=== PATIENT | female | born 1935 | race Caucasian/White ===

== ENCOUNTER 2017-06-02 15:00 | Emergency (ER) | payer MEDICARE, MEDICAID ==
[2017-06-02] MEDS ORDERED: Sodium Chloride 0.9% 10 ML Syringe FLUSH PRN (15:31)
--- NOTE | 2017-06-02 17:18 | EDM.PDOC ---
ED HPI GENERAL MEDICAL PROBLEM - General Chief Complaint: Cardiovascular Problem Stated Complaint: [facility] Time Seen by Provider: 06/02/17 15:10 Source of Information: Reports: Patient, Family, [facility] Records History Limitations: Reports: Other (Confused) - History of Present Illness INITIAL COMMENTS - FREE TEXT/NARRATIVE: [facility] and they checked her blood pressure and it was high and also her heart was racing at 133. EMS was called and when they got there her blood pressure and heart rate were coming down. She is on oxygen at the [facility] and it was not on for awhile. She denies any pain such as a headache, chest pain, abdominal pain or dysuria. She is not more short of breath then normal. She has no cough, fever or chills. There has been no recent changes to her medications. Onset: Sudden Duration: Minutes: Severity: Mild Improves with: Reports: None Worsens with: Reports: None Associated Symptoms: Reports: Shortness of Breath. Denies: Chest Pain, Fever/ Chills, Nausea/Vomiting - Related Data Allergies Allergy/AdvReac Type Severity Reaction Status Date / Time No Known Allergies Allergy Verified 06/02/17 15:12 Past Medical History HEENT History: Reports: Impaired Vision Cardiovascular History: Reports: Heart Failure, High Cholesterol, Hypertension Respiratory History: Reports: Other (See Below) Other Respiratory History: Hypoxemia- wears 2L chronic Gastrointestinal History: Reports: GERD Genitourinary History: Reports: Urinary Incontinence Musculoskeletal History: Reports: Osteoarthritis Neurological History: Reports: Alzheimers Disease Psychiatric History: Reports: Anxiety, Depression, Psychosis, Schizophrenia - Past Surgical History Musculoskeletal Surgical History: Reports: Hip Replacement Social & Family History - Family History Family Medical History: Noncontributory - Tobacco Use Smoking Status *Q: Former Smoker Used Tobacco, but Quit: Yes Month Tobacco Last Used: 06/02/2007 Second Hand Smoke Exposure: No - Recreational Drug Use Recreational Drug Use: No ED ROS GENERAL - Review of Systems Review Of Systems: See Below Constitutional: Reports: No Symptoms HEENT: Reports: No Symptoms Respiratory: Reports: Shortness of Breath Cardiovascular: Reports: Other (Tachycardia). Denies: Chest Pain Endocrine: Reports: No Symptoms GI/Abdominal: Reports: No Symptoms : Reports: No Symptoms ED EXAM, GENERAL - Physical Exam Exam: See Below Exam Limited By: No Limitations General Appearance: Alert, No Apparent Distress Ears: Normal External Exam Nose: Normal Inspection Head: Atraumatic, Normocephalic Neck: Normal Inspection Respiratory/Chest: No Respiratory Distress, Lungs Clear, Normal Breath Sounds Cardiovascular: Regular Rate, Rhythm, No Edema, No Murmur GI/Abdominal: Soft, Non-Tender, No Organomegaly, No Mass Back Exam: Normal Inspection Extremities: Normal Inspection Neurological: Alert, Oriented, No Motor/Sensory Deficits EKG INTERPRETATION EKG Date: 06/02/17 Time: 15:53 Rhythm: NSR Rate (Beats/Min): 83 Mathews: LAD-Left Mathews Deviation P-Wave: Present QRS: Normal ST-T: Normal QT: Normal EKG Interpretation Comments: PAC Course - Vital Signs Last Recorded V/S: Last Vital Signs Temp 98.1 F 06/02/17 15:08 Pulse 100 06/02/17 15:08 Resp 15 06/02/17 15:08 BP 136/95 H 06/02/17 15:08 Pulse Ox 96 06/02/17 15:08 - Orders/Labs/Meds Orders: Active Orders 24 hr Category Date Time Status Cardiac Monitoring [RC] . DIRECTED Care 06/02/17 15:31 Active EKG Documentation Completion [RC] STAT Care 06/02/17 15:32 Active Holter Monitor 48 Hours [RC] .PRN Care 06/02/17 17:12 Ordered Oxygen Therapy [RC] PRN Care 06/02/17 15:31 Active Peripheral IV Care [RC] . DIRECTED Care 06/02/17 15:32 Active Chest 1V Frontal [CR] Stat Exams 06/02/17 15:47 Taken Sodium Chloride 0.9% [Saline Flush] Med 06/02/17 15:31 Active 10 ml FLUSH ASDIRECTED PRN Peripheral IV Insertion Adult [OM.PC] Stat Oth 06/02/17 15:31 Ordered Medication Orders Sodium Chloride (Saline Flush) 10 ml FLUSH ASDIRECTED PRN PRN Reason: Keep Vein Open Last Admin: 06/02/17 15:50 Dose: 10 ml Labs: Laboratory Tests 06/02/17 06/02/17 Range/Units 15:50 15:50 WBC 10.61 H (3.98-10.04) K/mm3 RBC 4.33 (3.98-5.22) M/mm3 Hgb 13.4 (11.2-15.7) gm/L Hct 40.4 (34.1-44.9) % MCV 93.3 (79.4-94.8) fl MCH 30.9 (25.6-32.2) pg MCHC 33.2 (32.2-35.5) g/dl RDW Std Deviation 43.6 (36.4-46.3) fL Plt Count 194 (182-369) K/mm3 MPV 9.9 (9.4-12.3) fl Neut % (Auto) 73.5 H (34.0-71.1) % Lymph % (Auto) 16.1 L (19.3-51.7) % Gilliam % (Auto) 8.3 (4.7-12.5) % Eos % (Auto) 1.4 (0.7-5.8) Baso % (Auto) 0.3 (0.1-1.2) % Neut # (Auto) 7.80 H (1.56-6.13) K/mm3 Lymph # (Auto) 1.71 (1.18-3.74) K/mm3 Gilliam # (Auto) 0.88 H (0.24-0.36) K/mm3 Eos # (Auto) 0.15 (0.04-0.36) K/mm3 Baso # (Auto) 0.03 (0.01-0.08) K/mm3 Sodium 138 (136-145) mEq/L Potassium 3.7 (3.5-5.1) mEq/L Chloride 101 (98-107) mEq/L Carbon Dioxide 26 (21-32) mEq/L Anion Gap 14.7 (5-15) BUN 15 (7-18) mg/dL Creatinine 0.9 (0.55-1.02) mg/dL Est Cr Clr Drug Dosing 34.02 mL/min Estimated GFR (MDRD) 60 (>60) mL/min BUN/Creatinine Ratio 16.7 (14-18) Glucose 157 H (83-115) mg/dL Calcium 10.2 H (8.5-10.1) mg/dL Total Bilirubin 0.2 (0.2-1.0) mg/dL AST 22 (15-37) U/L ALT 25 (14-59) U/L Alkaline Phosphatase 86 (46-116) U/L Troponin I < 0.017 (0.00-0.056) ng/mL Total Protein 8.1 (6.4-8.2) g/dl Albumin 4.1 (3.4-5.0) g/dl Globulin 4.0 gm/dL Albumin/Globulin Ratio 1.0 (1-2) Meds: Medications Generic Name Dose Route Start Last Admin Trade Name Freq PRN Reason Stop Dose Admin Sodium Chloride 10 ml 06/02/17 15:31 06/02/17 15:50 Saline Flush FLUSH 10 ml ASDIRECTED PRN Administration Keep Vein Open - Re-Assessments/Exams Free Text/Narrative Re-Assessment/Exam: 06/02/17 17:19 I ordered oxygen, IV saline lock, EKG, CXR and labs. Her EKG shows a NSR with no acute changes and a PAC. Her CXR shows nothing acute. Her WBC was slightly elevated at 10.61. Her glucose was a little elevated at 157. Her troponin I was negative. We did not see any tachycardia while she is here. I will put a holter monitor on her for 48 hours and have he follow up with Dr Foster. Departure - Departure Time of Disposition: 17:25 Disposition: Home, Self-Care 01 Condition: Good Clinical Impression: HTN (hypertension) Qualifiers: Hypertension type: essential hypertension Qualified Code(s): I10 - Essential ( primary) hypertension Referrals: Burke Foster MD [Primary Care Provider] - Forms: ED Department Discharge Additional Instructions: Wear the holter monitor for 48 hours and have it returned so it can be read. Continue with your medications as prescribed. Follow up with Dr Foster in 1 week. - My Orders Last 24 Hours: My Active Orders 06/02/17 15:31 Cardiac Monitoring [RC] . DIRECTED Oxygen Therapy [RC] PRN Sodium Chloride 0.9% [Saline Flush] 10 ml FLUSH ASDIRECTED PRN Peripheral IV Insertion Adult [OM.PC] Stat 06/02/17 15:32 EKG Documentation Completion [RC] STAT Peripheral IV Care [RC] . DIRECTED 06/02/17 15:47 Chest 1V Frontal [CR] Stat 06/02/17 17:12 Holter Monitor 48 Hours [RC] .PRN - Assessment/Plan Last 24 Hours: My Active Orders 06/02/17 15:31 Cardiac Monitoring [RC] . DIRECTED Oxygen Therapy [RC] PRN Sodium Chloride 0.9% [Saline Flush] 10 ml FLUSH ASDIRECTED PRN Peripheral IV Insertion Adult [OM.PC] Stat 06/02/17 15:32 EKG Documentation Completion [RC] STAT Peripheral IV Care [RC] . DIRECTED 06/02/17 15:47 Chest 1V Frontal [CR] Stat 06/02/17 17:12 Holter Monitor 48 Hours [RC] .PRN
[2017-06-02 18:51] VITALS: BP 163/88
--- NOTE | 2017-06-04 07:24 | CR ---
Chest: Frontal view of the chest was obtained. Comparison: No prior chest x-ray. Heart size at the upper limits of normal. Tortuous thoracic aorta is seen. Lungs are clear with no acute infiltrates. Scoliosis is present within the spine. Bony structures are osteoporotic. Impression: 1. Incidental findings. Nothing acute is appreciated on frontal chest x-ray. Diagnostic code #2
== END 2017-06-02 17:42 | disposition home or self-care (01) ==
LOC: JD.ED 15:00
DX: I11.0 Hypertensive heart disease with heart failure (principal); I50.9 Heart failure, unspecified; E78.00 Pure hypercholesterolemia, unspecified; G30.9 Alzheimer's disease, unspecified; F02.80 Dementia in other diseases classified elsewhere, unspecified severity, without behavioral disturbance, psychotic disturbance, mood disturbance, and anxiety; M19.90 Unspecified osteoarthritis, unspecified site; K21.9 Gastro-esophageal reflux disease without esophagitis; Z96.649 Presence of unspecified artificial hip joint; Z87.891 Personal history of nicotine dependence
CPT/HCPCS: 36415; 71010; 80053; 84484; 85025; 93005; 93225; 93226; 99285; J7050; 99284

== ENCOUNTER 2017-11-15 04:50 | Emergency (ER) | payer MEDICARE, MEDICAID ==
--- NOTE | 2017-11-15 05:10 | EDM.PDOC ---
ED HPI GENERAL MEDICAL PROBLEM - General Chief Complaint: Head Injury Stated Complaint: [facility] Time Seen by Provider: 11/15/17 04:56 Source of Information: Reports: Patient, RN Notes Reviewed - History of Present Illness INITIAL COMMENTS - FREE TEXT/NARRATIVE: 82-year-old female fell injuring right forehead and eyebrow. She is a long term resident. Staff found her lying on the floor with active bleeding from right eyebrow laceration. It is not known if there was LOC but she was awake, in her normal state of confusion when found by staff. Ambulance was called and she was transported here without further incident. She does have history of dementia so any history from her may or may not be accurate. However she does deny headache on arrival to ED. She denies feeling nauseated. There's been no vomiting. She denies chest pain or difficulty breathing. She has not complained of hip or any other upper or lower extremity discomfort. She has not been complaining of neck or back discomfort. Right Head Pain Score (Numeric/FACES): 8 - Related Data Allergies Allergy/AdvReac Type Severity Reaction Status Date / Time No Known Allergies Allergy Verified 11/15/17 05:01 Home Meds: Home Meds Acetaminophen 650 mg PO TID 11/15/17 [History] Aspirin [Halfprin] 81 mg PO DAILY 11/15/17 [History] Cranberry 400 mg PO BID 11/15/17 [History] Donepezil HCl [Aricept] 10 mg PO BID 11/15/17 [History] Donepezil HCl [Aricept] 10 mg PO DAILY 11/15/17 [History] Donepezil [Aricept] 5 mg PO DAILY 11/15/17 [History] Furosemide [Lasix] 40 mg PO DAILY 11/15/17 [History] Latanoprost [Xalatan] 1 drop OP DAILY 11/15/17 [History] Lutein/Minerals/Vit A,C & E [Ocuvite] 1 tab PO BID 11/15/17 [History] Niacin [Niacin ER] 500 mg PO DAILY 11/15/17 [History] Potassium Chloride [Klor-Con M20] 20 meq PO DAILY 11/15/17 [History] Sennosides/Docusate Sodium [Senna Plus Tablet] 1 tab PO DAILY 11/15/17 [History] Sertraline [Zoloft] 200 mg PO DAILY 11/15/17 [History] Valsartan [Diovan] 80 mg PO DAILY 11/15/17 [History] busPIRone [Buspar] 10 mg PO TID 11/15/17 [History] glipiZIDE [Glucotrol] 5 mg PO BID 11/15/17 [History] metFORMIN [Glucophage] 125 mg PO BID 11/15/17 [History] risperiDONE [Risperdal] 2 mg PO DAILY 11/15/17 [History] risperiDONE [Risperdal] 3 mg PO BEDTIME 11/15/17 [History] Past Medical History HEENT History: Reports: Impaired Vision Cardiovascular History: Reports: Heart Failure, High Cholesterol, Hypertension Respiratory History: Reports: Other (See Below) Other Respiratory History: Hypoxemia- wears 2L chronic Gastrointestinal History: Reports: GERD Genitourinary History: Reports: Urinary Incontinence Musculoskeletal History: Reports: Osteoarthritis Neurological History: Reports: Alzheimers Disease Psychiatric History: Reports: Anxiety, Depression, Psychosis, Schizophrenia - Past Surgical History Musculoskeletal Surgical History: Reports: Hip Replacement Social & Family History - Family History Family Medical History: Noncontributory - Tobacco Use Smoking Status *Q: Former Smoker Used Tobacco, but Quit: Yes Month Tobacco Last Used: 06/02/2007 Second Hand Smoke Exposure: No - Recreational Drug Use Recreational Drug Use: No ED ROS GENERAL - Review of Systems Review Of Systems: See Below Constitutional: Reports: No Symptoms HEENT: Reports: Other (Laceration injury to right eyebrow) Respiratory: Denies: Shortness of Breath Cardiovascular: Denies: Chest Pain GI/Abdominal: Denies: Abdominal Pain, Nausea, Vomiting Musculoskeletal: Denies: Neck Pain, Leg Pain, Joint Pain Skin: Reports: Bruising (Around right eyebrow) Neurological: Denies: Headache ED EXAM, HEAD INJURY - Physical Exam Exam: See Below General Appearance: Alert (Patient is awake, cooperative with exam, does answer questions and does respond to simple commands) Head: Facial Ecchymosis (Large hematoma developing area of right eyebrow and surrounding forehead), Facial Swelling (Moderate swelling in the area of the right eyebrow and surrounding for head), Other (2.5 synovator laceration right eyebrow) Eyes: Bilateral Eye: Other (Pupils are equal bilateral) Ears: Normal External Exam. No: Canal Discharge Nose: Normal Inspection. No: Nasal Swelling, Active Bleeding Throat/Mouth: Normal Inspection, Other (No visible intraoral injury) Neck: Non-Tender Respiratory: No Respiratory Distress, Lungs Clear, Normal Breath Sounds, Chest Non-Tender Cardiovascular: Regular Rate, Rhythm GI/Abdominal Exam: Soft, Non-Tender Extremities: Leg Pain (Mild tenderness left hip, mild pain with motion left hip) Neurologic: No Motor/Sensory Deficits, Other (Moderate confusion, apparently chronic) Skin: Warm/Dry ED LACERATION/WOUND & KIRSTIN PROC - Laceration/Wound Repair Right Forehead Lac/wound length in cm: 2.5 Appearance: Linear Distal NVT: Neuro & Vascular Intact Anesthetic Type: Local Local Anesthesia - Lidocaine (Xylocaine): 1% Plain Skin Prep: Saline Suture Size: 4-0 # of Sutures: 4 Course - Vital Signs Last Recorded V/S: Last Vital Signs Temp 97.0 F 11/15/17 04:55 Pulse 80 11/15/17 04:55 Resp 14 11/15/17 04:55 BP 168/96 H 11/15/17 04:55 Pulse Ox 92 L 11/15/17 04:55 - Orders/Labs/Meds Orders: Active Orders 24 hr Category Date Time Status CBC WITH AUTO DIFF [HEME] Stat Lab 11/15/17 06:40 Received Meds: Medications Discontinued Medications Generic Name Dose Route Start Last Admin Trade Name [place] PRN Reason Stop Dose Admin Lidocaine HCl 50 ml 11/15/17 05:15 11/15/17 05:22 Xylocaine 1% INJECT 11/15/17 05:16 50 ml ONETIME ONE Administration - Re-Assessments/Exams Free Text/Narrative Re-Assessment/Exam: 11/15/17 06:05. Was not planning to do a head CT initially but now that I see the dramatic increase in bruising of the right eyebrow and forehead area even since arrival to the ED thinking about her hitting the floor hard with probable unprotected fall I am going to CT her had to rule out possible intracranial hemorrhage. Also did check a pelvis X ray because she did have some discomfort of her hips. There was no bruising, swelling or deformity for either hip. X- rays do not show any evidence for hip fracture. There is offset of the pubic symphysis secondary to old trauma, see Radiology report for details. Departure - Departure Time of Disposition: 06:50 Disposition: Home, Self-Care 01 Condition: Fair Clinical Impression: Fall Qualifiers: Encounter type: initial encounter Qualified Code(s): W19.XXXA - Unspecified fall, initial encounter Forehead laceration Qualifiers: Encounter type: initial encounter Qualified Code(s): S01.81XA - Laceration without foreign body of other part of head, initial encounter Forehead contusion Qualifiers: Encounter type: initial encounter Qualified Code(s): S00.83XA - Contusion of other part of head, initial encounter - Discharge Information Referrals: PCP,Unknown [Primary Care Provider] - Forms: ED Department Discharge Additional Instructions: Pressure dressing right forehead for 1-2 days, intermittent ice packs today if tolerated to right for head to try help reduce swelling and bruising. Head CT has been done, no intracranial hemorrhage, bruising or swelling visible. X- rays of pelvis and hips does not show any sign of acute fracture. Laceration care instructions. Stitches right for head else in about 8 days. - My Orders Last 24 Hours: My Active Orders 11/15/17 06:40 CBC WITH AUTO DIFF [HEME] Stat - Assessment/Plan Last 24 Hours: My Active Orders 11/15/17 06:40 CBC WITH AUTO DIFF [HEME] Stat
[2017-11-15] MEDS ORDERED: Lidocaine 1% 50 ML MDV INJECT ONE (05:15)
--- NOTE | 2017-11-15 06:23 | CR ---
Pelvis: AP view of the pelvis was obtained. Comparison: Prior left hip exam of 08/02/09 is available. Left hip prosthesis is seen. Bony structures are osteoporotic. Degenerative change is noted within the right hip and within both sacroiliac joints. Old pubic rami fractures noted on the right side resulting in slight offset of the pubic symphysis which is stable from prior exam. Lucency is identified around the pubic ramus Nothing acute is definitely appreciated. Impression: 1. Old trauma to the right pubic rami resulting in offset of the pubic symphysis. 2. Osteoporosis, degenerative change and left hip prosthesis. 3. Nothing acute is definitely appreciated. Diagnostic code #2
--- NOTE | 2017-11-15 06:40 | CT ---
Head CT Technique: Multiple axial sections through the brain were obtained. Intravenous contrast was not utilized. Comparison: No prior intracranial imaging. Findings: Ventricles along with basal cisterns and sulci over the convexities are moderately prominent. Mild diminished density is noted within the periventricular and subcortical white matter which is compatible with small vessel ischemic demyelination change. No other abnormal parenchymal densities are seen. Soft tissue swelling noted within the right periorbital region. Visualized sinuses are clear. No acute calvarial abnormality is seen. Impression: 1. Soft tissue swelling within the right periorbital region. 2. Senescent change as described above. 3. No acute intracranial abnormality is seen. No skull fracture is seen. Diagnostic code #2
[2017-11-15 08:20] VITALS: BP 136/64
== END 2017-11-15 09:09 | disposition home or self-care (01) ==
LOC: JD.ED 04:50
DX: S01.81XA Laceration without foreign body of other part of head, initial encounter (principal); S01.111A Laceration without foreign body of right eyelid and periocular area, initial encounter; I11.0 Hypertensive heart disease with heart failure; E78.00 Pure hypercholesterolemia, unspecified; K21.9 Gastro-esophageal reflux disease without esophagitis; G30.9 Alzheimer's disease, unspecified; F02.80 Dementia in other diseases classified elsewhere, unspecified severity, without behavioral disturbance, psychotic disturbance, mood disturbance, and anxiety; F32.9 Major depressive disorder, single episode, unspecified; Z79.899 Other long term (current) drug therapy; Z87.891 Personal history of nicotine dependence; W19.XXXA Unspecified fall, initial encounter; Y92.129 Unspecified place in nursing home as the place of occurrence of the external cause
CPT/HCPCS: 12011; 36415; 70450; 70450-26; 72170; 72170-26; 85025; 99285-25

== ENCOUNTER 2017-12-04 14:26 | Inpatient (IN) | payer MEDICARE, MEDICAID ==
[2017-12-04] MEDS ORDERED: Sodium Chloride 0.9% 10 ML Syringe FLUSH PRN (14:47)
[2017-12-04] MEDS ORDERED: Sodium Chloride 0.9% 500 ML IV ONE (14:48)
--- NOTE | 2017-12-04 14:50 | EDM.PDOC ---
ED HPI GENERAL MEDICAL PROBLEM - General Chief Complaint: Respiratory Problem Stated Complaint: [facility] Time Seen by Provider: 12/04/17 14:40 Source of Information: Reports: Patient History Limitations: Reports: No Limitations - History of Present Illness INITIAL COMMENTS - FREE TEXT/NARRATIVE: 82-year-old female is sent over from the [facility] the ambulance for evaluation and treatment of dehydration. Per the senior care she seems more confused than normal. They reports that she had a temperature of 100.4 at the senior care. They did give some Tylenol earlier this morning. She is unable to provide any history. Per the senior care no reports of vomiting or diarrhea. Patient is a DNR, DNI. - Related Data Allergies Allergy/AdvReac Type Severity Reaction Status Date / Time No Known Allergies Allergy Verified 12/04/17 18:00 Home Meds: Home Meds Acetaminophen 650 mg PO TID 11/15/17 [History] Aspirin [Halfprin] 81 mg PO DAILY 11/15/17 [History] Cranberry 400 mg PO BID 11/15/17 [History] Donepezil [Aricept] 10 mg PO BID 11/15/17 [History] Furosemide [Lasix] 40 mg PO DAILY 11/15/17 [History] Latanoprost [Xalatan] 1 drop OP DAILY 11/15/17 [History] Lutein/Minerals/Vit A,C & E [Ocuvite] 1 tab PO BID 11/15/17 [History] Niacin [Niacin ER] 500 mg PO DAILY 11/15/17 [History] Potassium Chloride [Klor-Con M20] 20 meq PO DAILY 11/15/17 [History] Sennosides/Docusate Sodium [Senna Plus Tablet] 1 tab PO DAILY 11/15/17 [History] Sertraline [Zoloft] 200 mg PO DAILY 11/15/17 [History] Valsartan [Diovan] 80 mg PO DAILY 11/15/17 [History] busPIRone [Buspar] 10 mg PO TID 11/15/17 [History] glipiZIDE [Glucotrol] 5 mg PO BID 11/15/17 [History] metFORMIN [Glucophage] 125 mg PO BID 11/15/17 [History] risperiDONE [Risperdal] 3 mg PO BEDTIME 11/15/17 [History] risperiDONE 2 mg PO DAILY 12/04/17 [History] Past Medical History HEENT History: Reports: Impaired Vision Cardiovascular History: Reports: Heart Failure, High Cholesterol, Hypertension Respiratory History: Reports: Other (See Below) Other Respiratory History: Hypoxemia- wears 2L chronic Gastrointestinal History: Reports: GERD Genitourinary History: Reports: Urinary Incontinence Musculoskeletal History: Reports: Osteoarthritis Neurological History: Reports: Alzheimers Disease Psychiatric History: Reports: Anxiety, Depression, Psychosis, Schizophrenia - Past Surgical History Musculoskeletal Surgical History: Reports: Hip Replacement Social & Family History - Family History Family Medical History: Noncontributory - Tobacco Use Smoking Status *Q: Former Smoker Used Tobacco, but Quit: Yes Month Tobacco Last Used: 06/02/2007 Second Hand Smoke Exposure: No - Caffeine Use Caffeine Use: Reports: None - Recreational Drug Use Recreational Drug Use: No ED ROS GENERAL - Review of Systems Review Of Systems: Unable To Obtain ED EXAM, GENERAL - Physical Exam Exam: See Below Exam Limited By: No Limitations General Appearance: Obtunded, Moderate Distress, Thin Ears: Normal External Exam Nose: Normal Inspection Throat/Mouth: Normal Inspection, Normal Voice, No Airway Compromise, Other (dry mucus membranes) Respiratory/Chest: Rhonchi, Wheezing, Other (tachypnic ) Cardiovascular: Normal Peripheral Pulses, Regular Rate, Rhythm, No Murmur Peripheral Pulses: 3+: Radial (L), Radial (R), Posterior Tibial (L), Posterior Tibial (R), Dorsalis Pedis (L), Dorsalis Pedis (R) GI/Abdominal: Soft, Non-Tender Neurological: Unresponsive Psychiatric: Normal Affect, Normal Mood Skin Exam: Warm, Dry, Normal Color Course - Vital Signs Last Recorded V/S: Last Vital Signs Temp 37.3 C 12/04/17 21:11 Pulse 85 12/04/17 21:10 Resp 21 H 12/04/17 21:10 BP 110/50 L 12/04/17 21:10 Pulse Ox 90 L 12/04/17 22:00 - Orders/Labs/Meds Orders: Active Orders 24 hr Category Date Time Status Antiembolic Devices [RC] 09,21 Care 12/04/17 16:54 Active Bedrest Bathroom Privileges [RC] BID Care 12/04/17 16:49 Active Blood Glucose Check, Bedside [RC] QIDACANDBED Care 12/04/17 17:05 Active Head of Bed Elevation [RC] QSHIFT Care 12/04/17 17:02 Active Height and Weight [RC] 04 Care 12/04/17 16:49 Active Insert Lopez Catheter [Insert Urinary Catheter] [OM.PC] Care 12/04/17 14:54 Ordered Stat Intake and Output [RC] 04,16 Care 12/04/17 16:50 Active Oxygen Therapy [RC] ASDIRECTED Care 12/04/17 16:05 Active Pulse Oximetry [RC] QSHIFT Care 12/04/17 16:50 Active RT Aerosol Therapy [RC] ASDIRECTED Care 12/04/17 16:54 Active VTE/DVT Education [RC] DAILY Care 12/04/17 16:49 Active Vital Signs [RC] Q4HR Care 12/04/17 16:49 Active Consult to Case Management [CONS] Routine Cons 12/04/17 16:49 Active Consult to Plug Sorter [CONS] Routine Cons 12/04/17 16:49 Active Consult to Spiritual Care [CONS] Routine Cons 12/04/17 16:49 Active Respiratory Care Assess and Treatment [CONS] Routine Cons 12/04/17 16:49 Active Nothing per Oral Now Diet [DIET] Diet 12/04/17 Dinner Active Chest 2V [CR] Routine Exams 12/06/17 08:00 Ordered BASIC METABOLIC PANEL,BMP [CHEM] AM Lab 12/05/17 05:11 Ordered BASIC METABOLIC PANEL,BMP [CHEM] AM Lab 12/06/17 05:11 Ordered BASIC METABOLIC PANEL,BMP [CHEM] AM Lab 12/07/17 05:11 Ordered BASIC METABOLIC PANEL,BMP [CHEM] AM Lab 12/08/17 05:11 Ordered CBC WITH AUTO DIFF [HEME] AM Lab 12/05/17 05:11 Ordered CBC WITH AUTO DIFF [HEME] AM Lab 12/06/17 05:11 Ordered CBC WITH AUTO DIFF [HEME] AM Lab 12/07/17 05:11 Ordered CBC WITH AUTO DIFF [HEME] AM Lab 12/08/17 05:11 Ordered CRP [C-REACTIVE PROTEIN] [CHEM] AM Lab 12/05/17 05:11 Ordered CRP [C-REACTIVE PROTEIN] [CHEM] AM Lab 12/06/17 05:11 Ordered CRP [C-REACTIVE PROTEIN] [CHEM] AM Lab 12/07/17 05:11 Ordered CRP [C-REACTIVE PROTEIN] [CHEM] AM Lab 12/08/17 05:11 Ordered CULTURE BLOOD [BC] Stat Lab 12/04/17 15:05 Received CULTURE BLOOD [BC] Stat Lab 12/04/17 15:15 Received CULTURE URINE [RM] Stat Lab 12/04/17 14:54 Received MAGNESIUM [CHEM] AM Lab 12/05/17 05:11 Ordered MAGNESIUM [CHEM] AM Lab 12/06/17 05:11 Ordered MAGNESIUM [CHEM] AM Lab 12/07/17 05:11 Ordered MAGNESIUM [CHEM] AM Lab 12/08/17 05:11 Ordered PRO B-TYPE NATRIUR PEPT,BNPPRO [CHEM] Routine Lab 12/05/17 05:11 Ordered STREP PNEUMONIAE ANTIGEN [MREF] Routine Lab 12/04/17 14:54 Received Acetaminophen [Tylenol] Med 12/04/17 16:49 Active 650 mg RECTAL Q4H PRN Albuterol/Ipratropium [DuoNeb 3.0-0.5 MG/3 ML] Med 12/04/17 21:00 Active 3 ml NEB Q6HRRT Dextrose 50% in Water Med 12/04/17 17:05 Active 50 ml IVPUSH ASDIRECTED PRN Insulin Aspart [NovoLOG] Med 12/04/17 22:00 Active See Protocol SUBCUT QIDACANDBED Levofloxacin/Dextrose 5%-Water [Levaquin in D5W 750 MG/ Med 12/04/17 17:00 Active 150 ML] 750 mg Premix Bag 1 bag IV Q24H Magnesium Rep Pharmacy to Dose [Pharmacy to Dose - Med 12/04/17 17:00 Active Magnesium Replacement] 1 dose .XX ASDIRECTED Metoprolol Tartrate [Lopressor] Med 12/04/17 17:07 Active 5 mg IVPUSH Q4H PRN Morphine Med 12/04/17 16:49 Active 0.5 mg IVPUSH Q2H PRN Ondansetron [Zofran] Med 12/04/17 16:49 Active 4 mg IV Q6H PRN Pantoprazole [ProTONIX IV] Med 12/04/17 17:15 Active 40 mg IVPUSH DAILY Potassium Rep Pharmacy to Dose [Pharmacy to Dose - Med 12/04/17 17:00 Active Potassium Replacement] 1 dose .XX ASDIRECTED Sodium Chloride 0.9% [Saline Flush] Med 12/04/17 14:47 Active 10 ml FLUSH ASDIRECTED PRN hydrALAZINE [Apresoline] Med 12/04/17 17:07 Active 10 mg IVPUSH Q6H PRN Blood Culture x2 Reflex Set [OM.PC] Stat Ot 12/04/17 14:47 Ordered Peripheral IV Insertion Adult [OM.PC] Routine Oth 12/04/17 14:46 Ordered Precautions [COMM] Routine Oth 12/04/17 17:02 Ordered Sequential Compression Device [OM.PC] Per Unit Routine Oth 12/04/17 16:51 Ordered Resuscitation Status Routine Resus Stat 12/04/17 16:49 Ordered Medication Orders Acetaminophen (Tylenol) 650 mg RECTAL Q4H PRN PRN Reason: Pain (mild 1-3) Albuterol/Ipratropium (Duoneb 3.0-0.5 Mg/3 Ml) 3 ml NEB Q6HRRT [facility] Last Admin: 12/04/17 20:41 Dose: 3 ml Dextrose/Water (Dextrose 50% In Water) 50 ml IVPUSH ASDIRECTED PRN PRN Reason: Hypoglycemia Furosemide (Lasix) 20 mg IVPUSH DAILY [facility] Hydralazine HCl (Apresoline) 10 mg IVPUSH Q6H PRN PRN Reason: Hypertension Levofloxacin/Dextrose 750 mg/ (Premix) 150 mls @ 100 mls/hr IV Q24H [facility] Last Admin: 12/04/17 17:15 Dose: 100 mls/hr Sodium Chloride (Normal Saline) 1,000 mls @ 75 mls/hr IV ASDIRECTED [facility] Stop: 12/05/17 11:04 Last Admin: 12/04/17 21:44 Dose: 75 mls/hr Insulin Aspart (Novolog) 0 unit SUBCUT QIDACANDBED [facility] PRN Reason: Protocol Last Admin: 12/04/17 21:59 Dose: Latanoprost (Xalatan 0.005% Ophth Soln) 0 ml EYERT DAILY [facility] Magnesium Sulfate (Pharmacy To Dose - Magnesium Replacement) 1 dose .XX ASDIRECTED [facility] Metoprolol Tartrate (Lopressor) 5 mg IVPUSH Q4H PRN PRN Reason: Tachycardia Morphine Sulfate (Morphine) 0.5 mg IVPUSH Q2H PRN PRN Reason: Pain (severe 7-10) Stop: 12/05/17 16:54 Ondansetron HCl (Zofran) 4 mg IV Q6H PRN PRN Reason: Nausea/Vomiting Pantoprazole Sodium (Protonix Iv) 40 mg IVPUSH DAILY [facility] Last Admin: 12/04/17 18:47 Dose: 40 mg Potassium Chloride (Pharmacy To Dose - Potassium Replacement) 1 dose .XX ASDIRECTED [facility] Sodium Chloride (Saline Flush) 10 ml FLUSH ASDIRECTED PRN PRN Reason: Keep Vein Open Last Admin: 12/04/17 15:00 Dose: 10 ml Labs: Laboratory Tests 12/04/17 12/04/17 12/04/17 Range/Units 14:54 15:05 15:05 WBC 10.54 H (3.98-10.04) K/mm3 RBC 4.30 (3.98-5.22) M/mm3 Hgb 13.6 (11.2-15.7) gm/L Hct 41.5 (34.1-44.9) % MCV 96.5 H (79.4-94.8) fl MCH 31.6 (25.6-32.2) pg MCHC 32.8 (32.2-35.5) g/dl RDW Std Deviation 48.6 H (36.4-46.3) fL Plt Count 177 L (182-369) K/mm3 MPV 9.7 (9.4-12.3) fl Neutrophils % (Manual) 81 H (40-60) % Band Neutrophils % 3 (0-10) % Lymphocytes % (Manual) 11 L (20-40) % Atypical Lymphs % 0 % Monocytes % (Manual) 4 (2-10) % Eosinophils % (Manual) 0 L (0.7-5.8) % Basophils % (Manual) 1 (0.1-1.2) Toxic Granulation Few Platelet Estimate Adequate Plt Morphology Comment Normal Anisocytosis 1+ slight RBC Morph Comment Not Reportable Sodium 141 (136-145) mEq/L Potassium 3.7 (3.5-5.1) mEq/L Chloride 103 (98-107) mEq/L Carbon Dioxide 24 (21-32) mEq/L Anion Gap 17.7 H (5-15) BUN 26 H (7-18) mg/dL Creatinine 1.2 H (0.55-1.02) mg/dL Est Cr Clr Drug Dosing TNP Estimated GFR (MDRD) 43 (>60) mL/min BUN/Creatinine Ratio 21.7 H (14-18) Glucose 121 H (83-115) mg/dL Lactic Acid (0.4-2.0) mmol/L Calcium 10.0 (8.5-10.1) mg/dL Total Bilirubin 0.3 (0.2-1.0) mg/dL AST 18 (15-37) U/L ALT 20 (14-59) U/L Alkaline Phosphatase 65 (46-116) U/L C-Reactive Protein 4.6 H* (<1.0) mg/dL Total Protein 7.7 (6.4-8.2) g/dl Albumin 3.6 (3.4-5.0) g/dl Globulin 4.1 gm/dL Albumin/Globulin Ratio 0.9 L (1-2) Urine Color Yellow (Yellow) Urine Appearance Cloudy H (Clear) Urine pH 7.5 (5.0-8.0) Ur Specific [place] 1.020 (1.005-1.030) Urine Protein 2+ H (Negative) Urine Glucose (UA) Negative (Negative) Urine Ketones Negative (Negative) Urine Occult Blood 1+ H (Negative) Urine Nitrite Negative (Negative) Urine Bilirubin Negative (Negative) Urine Urobilinogen 0.2 (0.2-1.0) Ur Leukocyte Esterase 3+ H (Negative) Urine RBC 5-10 H (0-5) /hpf Urine WBC 40-50 H (0-5) /hpf Ur Epithelial Cells 5-10 H (0-5) /hpf Amorphous Sediment Moderate H (NOT SEEN) /hpf Urine Bacteria Many H (FEW) /hpf Urine Mucus Not seen (FEW) /hpf Mycoplasma pneumon IgM (NEGATIVE) 12/04/17 12/04/17 Range/Units 15:05 15:05 WBC (3.98-10.04) K/mm3 RBC (3.98-5.22) M/mm3 Hgb (11.2-15.7) gm/L Hct (34.1-44.9) % MCV (79.4-94.8) fl MCH (25.6-32.2) pg MCHC (32.2-35.5) g/dl RDW Std Deviation (36.4-46.3) fL Plt Count (182-369) K/mm3 MPV (9.4-12.3) fl Neutrophils % (Manual) (40-60) % Band Neutrophils % (0-10) % Lymphocytes % (Manual) (20-40) % Atypical Lymphs % % Monocytes % (Manual) (2-10) % Eosinophils % (Manual) (0.7-5.8) % Basophils % (Manual) (0.1-1.2) Toxic Granulation Platelet Estimate Plt Morphology Comment Anisocytosis RBC Morph Comment Sodium (136-145) mEq/L Potassium (3.5-5.1) mEq/L Chloride (98-107) mEq/L Carbon Dioxide (21-32) mEq/L Anion Gap (5-15) BUN (7-18) mg/dL Creatinine (0.55-1.02) mg/dL Est Cr Clr Drug Dosing Estimated GFR (MDRD) (>60) mL/min BUN/Creatinine Ratio (14-18) Glucose (83-115) mg/dL Lactic Acid 1.0 (0.4-2.0) mmol/L Calcium (8.5-10.1) mg/dL Total Bilirubin (0.2-1.0) mg/dL AST (15-37) U/L ALT (14-59) U/L Alkaline Phosphatase (46-116) U/L C-Reactive Protein (<1.0) mg/dL Total Protein (6.4-8.2) g/dl Albumin (3.4-5.0) g/dl Globulin gm/dL Albumin/Globulin Ratio (1-2) Urine Color (Yellow) Urine Appearance (Clear) Urine pH (5.0-8.0) Ur Specific [place] (1.005-1.030) Urine Protein (Negative) Urine Glucose (UA) (Negative) Urine Ketones (Negative) Urine Occult Blood (Negative) Urine Nitrite (Negative) Urine Bilirubin (Negative) Urine Urobilinogen (0.2-1.0) Ur Leukocyte Esterase (Negative) Urine RBC (0-5) /hpf Urine WBC (0-5) /hpf Ur Epithelial Cells (0-5) /hpf Amorphous Sediment (NOT SEEN) /hpf Urine Bacteria (FEW) /hpf Urine Mucus (FEW) /hpf Mycoplasma pneumon IgM Negative (NEGATIVE) Meds: Medications Generic Name Dose Route Start Last Admin Trade Name Freq PRN Reason Stop Dose Admin Acetaminophen 650 mg 12/04/17 16:49 Tylenol RECTAL Q4H PRN Pain (mild 1-3) Albuterol/Ipratropium 3 ml 12/04/17 21:00 12/04/17 20:41 Duoneb 3.0-0.5 Mg/3 Ml NEB 3 ml Q6HRRT [facility] Administration Dextrose/Water 50 ml 12/04/17 17:05 Dextrose 50% In Water IVPUSH ASDIRECTED PRN Hypoglycemia Furosemide 20 mg 12/05/17 09:00 Lasix IVPUSH DAILY [facility] Hydralazine HCl 10 mg 12/04/17 17:07 Apresoline IVPUSH Q6H PRN Hypertension Levofloxacin/Dextrose 750 mg/ 150 mls @ 100 mls/hr 12/04/17 17:00 12/04/17 17 :15 Premix IV 100 mls/hr Q24H [facility] Administration Sodium Chloride 1,000 mls @ 75 mls/hr 12/04/17 21:45 12/04/17 21:44 Normal Saline IV 12/05/17 11:04 75 mls/hr ASDIRECTED [facility] Administration Insulin Aspart 0 unit 12/04/17 22:00 12/04/17 21:59 Novolog SUBCUT Not Given QIDACANDBED [facility] Protocol Latanoprost 0 ml 12/05/17 09:00 Xalatan 0.005% Ophth Soln EYERT DAILY [facility] Magnesium Sulfate 1 dose 12/04/17 17:00 Pharmacy To Dose - Magnesium Replacement .XX ASDIRECTED [facility] Metoprolol Tartrate 5 mg 12/04/17 17:07 Lopressor IVPUSH Q4H PRN Tachycardia Morphine Sulfate 0.5 mg 12/04/17 16:49 Morphine IVPUSH 12/05/17 16:54 Q2H PRN Pain (severe 7-10) Ondansetron HCl 4 mg 12/04/17 16:49 Zofran IV Q6H PRN Nausea/Vomiting Pantoprazole Sodium 40 mg 12/04/17 17:15 12/04/17 18:47 Protonix Iv IVPUSH 40 mg DAILY [facility] Administration Potassium Chloride 1 dose 12/04/17 17:00 Pharmacy To Dose - Potassium Replacement .XX ASDIRECTED [facility] Sodium Chloride 10 ml 12/04/17 14:47 12/04/17 15:00 Saline Flush FLUSH 10 ml ASDIRECTED PRN Administration Keep Vein Open Discontinued Medications Generic Name Dose Route Start Last Admin Trade Name [place] PRN Reason Stop Dose Admin Acetaminophen 650 mg 12/04/17 16:00 12/04/17 17:01 Tylenol RECTAL 12/04/17 16:01 650 mg NOW ONE Administration Sodium Chloride 500 mls @ 500 mls/hr 12/04/17 14:48 12/04/17 15:22 Normal Saline IV 12/04/17 15:47 500 mls/hr ONETIME ONE Administration Ceftriaxone Sodium 1 gm/ 100 mls @ 200 mls/hr 12/04/17 15:49 12/04/17 16:05 Sodium Chloride IV 12/04/17 16:18 200 mls/hr ONETIME ONE Administration Sodium Chloride 1,000 mls @ 100 mls/hr 12/04/17 15:55 12/04/17 18:34 Normal Saline IV 12/05/17 01:54 100 mls/hr ONETIME ONE Administration - Radiology Interpretation Free Text/Narrative:: Chest: Portable view of the chest was obtained. Comparison: Previous chest x-ray of 06/02/17. Slight parenchymal density is seen behind the left heart. Lungs otherwise are clear. Heart is enlarged. Tortuous thoracic aorta is seen. Several old healed right-sided rib fractures are seen. Bony structures are osteopenic. Impression: 1. Slight parenchymal density behind the left heart suspicious for small area of pneumonia. 2. Mild cardiomegaly and other incidental findings. - Re-Assessments/Exams Free Text/Narrative Re-Assessment/Exam: 12/04/17 16:06 I checked on the patient. She did sit up and and knowledge my presence. She does still seem very confused. Unclear exactly how far this is from her baseline. snf confirmed that they do give the Tylenol around 11 AM. She has been ordered 650 mg rectal Tylenol. I also ordered her a gram of Rocephin. She has pneumonia and urinary tract infection. She is also likely septic. I spoke with Dr. Campoverde regarding this patient. He agrees to accept the patient. Departure - Departure Time of Disposition: 16:10 Disposition: Admitted As Inpatient 65 Condition: Serious Clinical Impression: Pneumonia UTI (urinary tract infection) Qualifiers: Urinary tract infection type: acute cystitis Hematuria presence: with hematuria Qualified Code(s): N30.01 - Acute cystitis with hematuria - Discharge Information - My Orders Last 24 Hours: My Active Orders 12/04/17 14:46 Peripheral IV Insertion Adult [OM.PC] Routine 12/04/17 14:47 Sodium Chloride 0.9% [Saline Flush] 10 ml FLUSH ASDIRECTED PRN Blood Culture x2 Reflex Set [OM.PC] Stat 12/04/17 14:54 Insert Lopez Catheter [Insert Urinary Catheter] [OM.PC] Stat CULTURE URINE [RM] Stat 12/04/17 15:05 CULTURE BLOOD [BC] Stat 12/04/17 15:15 CULTURE BLOOD [BC] Stat 12/04/17 16:05 Oxygen Therapy [RC] ASDIRECTED - Assessment/Plan Last 24 Hours: My Active Orders 12/04/17 14:46 Peripheral IV Insertion Adult [OM.PC] Routine 12/04/17 14:47 Sodium Chloride 0.9% [Saline Flush] 10 ml FLUSH ASDIRECTED PRN Blood Culture x2 Reflex Set [OM.PC] Stat 12/04/17 14:54 Insert Lopez Catheter [Insert Urinary Catheter] [OM.PC] Stat CULTURE URINE [RM] Stat 12/04/17 15:05 CULTURE BLOOD [BC] Stat 12/04/17 15:15 CULTURE BLOOD [BC] Stat 12/04/17 16:05 Oxygen Therapy [RC] ASDIRECTED
--- NOTE | 2017-12-04 15:48 | CR ---
Chest: Portable view of the chest was obtained. Comparison: Previous chest x-ray of 06/02/17. Slight parenchymal density is seen behind the left heart. Lungs otherwise are clear. Heart is enlarged. Tortuous thoracic aorta is seen. Several old healed right-sided rib fractures are seen. Bony structures are osteopenic. Impression: 1. Slight parenchymal density behind the left heart suspicious for small area of pneumonia. 2. Mild cardiomegaly and other incidental findings. Diagnostic code #3
[2017-12-04] MEDS ORDERED: cefTRIAXone 1 GM in Sodium Chloride 0.9% 100 ML IV ONE (15:49)
[2017-12-04] MEDS ORDERED: Sodium Chloride 0.9% 1,000 ML IV ONE (15:55)
[2017-12-04] MEDS ORDERED: Acetaminophen 650 MG Supp RECTAL ONE (16:00)
[2017-12-04] MEDS ORDERED: Ondansetron 4 MG/2 ML SDV IV PRN (16:49)
[2017-12-04] MEDS ORDERED: Morphine 2 MG/ML Syringe IVPUSH PRN (16:49)
[2017-12-04] MEDS ORDERED: Acetaminophen 650 MG Supp RECTAL PRN (16:49)
--- NOTE | 2017-12-04 16:49 | PCM.HP ---
H&P History of Present Illness - General Date of Service: 12/04/17 Admit Problem/Dx: UTI, Pneumonia Source of Information: Family (Daughter in-law in room ), Provider, RN, RN Notes Reviewed History Limitations: Reports: Altered Mental Status - History of Present Illness Initial Comments - Free Text/Narative: India Emerson is a 82 yo female who presented to our ED today from [facility] via ambulance for possible dehydration. penitentiary reports she seemed more confused than normal and had a temperature of 100.4. They gave her Tylenol around 11 AM. She has a history of dementia and is unable to provide any history. penitentiary reports no vomiting or diarrhea. In the ED temp was 38.4 Celsius. Pulse 96. Respirations 18. Blood pressure 120/70. Pulse ox was 80% labs are obtained: She does have mild leukocytosis at 10.54. Hemoglobin is 13.6. Hematocrit 41.5. She is macrocytic. Bullets are low at 177,000. Neutrophils are elevated at 81%. Band neutrophils are at 3%. Sodium was 141. Potassium 3.7. Chloride 103. Carbon dioxide 24. Anion gap is high at 17.7. BUN is high at 26. Creatinine is high at 1.2. EGFR is 43. Glucose is high at 121. Lactic acid is 1.0. Calcium is 10.0. Total bilirubin 0.3. Liver enzymes looked good with AST at 18, ALT at 20, alkaline phosphatase at 65. CRP is slightly elevated at 4.6. Total protein is 7.7. Albumin 3.6. UA is positive with cloudy urine, 2+ protein, 1+ occult blood, 3+ leukocyte esterase, 5-10 urine RBCs, 4050 urine 30 BCs, 5-10 urine epithelial cells, moderate amorphous sediment, and many urine bacteria. Urine cultures are ordered. Blood cultures were ordered. Given 1 g Rocephin in the ED. She is also started on IV fluids. She is given a 500 mL bolus. She is also given 650 mg rectal Tylenol. Chest x-ray is obtained and compared to prior chest x-ray of 06/02/17. This is interpreted by Dr. Olmstead as "1. Slight parenchymal density behind the left heart suspicious for small area pneumonia. 2. Mild cardiomegaly and other incidental findings." She did respond slightly to the ED provider when the provider walked in the room however on my exam she was was unresponsive. She does carry a history of: Alzheimer's disease, dementia with behavioral disturbances, dysthymic disorder, type II DM,. Schizophrenia, anxiety, heart failure, incontinence, osteoporosis, depression, HLD, GERD, glaucoma, constipation. She is a former smoker. She is subsequently admitted to the medical floor. She is a DNR/DNI. Her PCP is Dr. Foster at [facility]. - Related Data Allergies/Adverse Reactions: Allergies Allergy/AdvReac Type Severity Reaction Status Date / Time No Known Allergies Allergy Verified 12/04/17 18:00 Home Medications: Home Meds Acetaminophen 650 mg PO TID 11/15/17 [History] Aspirin [Halfprin] 81 mg PO DAILY 11/15/17 [History] Cranberry 400 mg PO BID 11/15/17 [History] Donepezil [Aricept] 10 mg PO BID 11/15/17 [History] Furosemide [Lasix] 40 mg PO DAILY 11/15/17 [History] Latanoprost [Xalatan] 1 drop OP DAILY 11/15/17 [History] Lutein/Minerals/Vit A,C & E [Ocuvite] 1 tab PO BID 11/15/17 [History] Niacin [Niacin ER] 500 mg PO DAILY 11/15/17 [History] Potassium Chloride [Klor-Con M20] 20 meq PO DAILY 11/15/17 [History] Sennosides/Docusate Sodium [Senna Plus Tablet] 1 tab PO DAILY 11/15/17 [History] Sertraline [Zoloft] 200 mg PO DAILY 11/15/17 [History] Valsartan [Diovan] 80 mg PO DAILY 11/15/17 [History] busPIRone [Buspar] 10 mg PO TID 11/15/17 [History] glipiZIDE [Glucotrol] 5 mg PO BID 11/15/17 [History] metFORMIN [Glucophage] 125 mg PO BID 11/15/17 [History] risperiDONE [Risperdal] 3 mg PO BEDTIME 11/15/17 [History] risperiDONE 2 mg PO DAILY 12/04/17 [History] Past Medical History HEENT History: Reports: Impaired Vision Cardiovascular History: Reports: Heart Failure, High Cholesterol, Hypertension Respiratory History: Reports: Other (See Below) Other Respiratory History: Hypoxemia- wears 2L chronic Gastrointestinal History: Reports: GERD Genitourinary History: Reports: Urinary Incontinence Musculoskeletal History: Reports: Osteoarthritis Neurological History: Reports: Alzheimers Disease Psychiatric History: Reports: Anxiety, Depression, Psychosis, Schizophrenia - Past Surgical History Musculoskeletal Surgical History: Reports: Hip Replacement Social & Family History - Family History Family Medical History: Noncontributory - Tobacco Use Smoking Status *Q: Former Smoker Used Tobacco, but Quit: Yes Month Tobacco Last Used: 06/02/2007 Second Hand Smoke Exposure: No - Caffeine Use Caffeine Use: Reports: None - Recreational Drug Use Recreational Drug Use: No H&P Review of Systems - Review of Systems: Review Of Systems: Unable To Obtain Free Text/Narrative: Unable to obtain a ROS from patient as she is unresponsive to me. ED provider reports [facility] staff noticed patient had a fever and was more confused than normal. She was given tylenol. She does have a significant history of dementia and confusion. She is normally on NDD1 - pureed with thin liquids diet. Her medications are usually crushed and placed in pudding. She does have assistance when feeding. Adriana in- is in room and reports patient is usually alert but quite confused. She reports patient can normally hear well but is essentially blind. This leads to difficulty with eating. Exam - Exam Exam: See Below - Vital Signs Vital Signs: Last Vital Signs Temp 101.1 F H 12/04/17 14:32 Pulse 96 12/04/17 14:32 Resp 18 12/04/17 14:32 BP 128/70 12/04/17 14:32 Pulse Ox 88 L 12/04/17 14:32 Weight: 119 lb 9.6 oz - Exam Quality Assessment: Supplemental Oxygen General: Mild Distress, Lethargic. No: Alert, Cooperative HEENT: Conjunctiva Clear, EACs Clear, Nares Patent, Pupils Equal, Pupils Reactive, Other. No: Mucosa Moist & [place] Neck: Supple, Trachea Midline. No: JVD, Thyromegaly Lungs: Normal Respiratory Effort, Decreased Breath Sounds, Rhonchi, Wheezing Cardiovascular: Regular Rate, Regular Rhythm GI/Abdominal Exam: Normal Bowel Sounds, Soft, Non-Tender, No Organomegaly, No Distention, No Abnormal Bruit, No Mass, Pelvis Stable (Female) Exam: Deferred Rectal (Female) Exam: Deferred Extremities: Normal Inspection, Normal Range of Motion, Non-Tender, Normal Capillary Refill, Pedal Edema (mild) Peripheral Pulses: 1+: Radial (L), Radial (R), Posterior Tibial (L), Posterior Tibial (R), Dorsalis Pedis (L), Dorsalis Pedis (R) Skin: Warm, Dry, Intact Neurological: Other (Unable to examine as patien is unresponsive ) - Patient Data Lab Results Last 24 hrs: Laboratory Results - last 24 hr 12/04/17 12/04/17 12/04/17 Range/Units 14:54 15:05 15:05 WBC 10.54 H (3.98-10.04) K/mm3 RBC 4.30 (3.98-5.22) M/mm3 Hgb 13.6 (11.2-15.7) gm/L Hct 41.5 (34.1-44.9) % MCV 96.5 H (79.4-94.8) fl MCH 31.6 (25.6-32.2) pg MCHC 32.8 (32.2-35.5) g/dl RDW Std Deviation 48.6 H (36.4-46.3) fL Plt Count 177 L (182-369) K/mm3 MPV 9.7 (9.4-12.3) fl Neutrophils % (Manual) 81 H (40-60) % Band Neutrophils % 3 (0-10) % Lymphocytes % (Manual) 11 L (20-40) % Atypical Lymphs % 0 % Monocytes % (Manual) 4 (2-10) % Eosinophils % (Manual) 0 L (0.7-5.8) % Basophils % (Manual) 1 (0.1-1.2) Toxic Granulation Few Platelet Estimate Adequate Plt Morphology Comment Normal Anisocytosis 1+ slight RBC Morph Comment Not Reportable Sodium 141 (136-145) mEq/L Potassium 3.7 (3.5-5.1) mEq/L Chloride 103 (98-107) mEq/L Carbon Dioxide 24 (21-32) mEq/L Anion Gap 17.7 H (5-15) BUN 26 H (7-18) mg/dL Creatinine 1.2 H (0.55-1.02) mg/dL Est Cr Clr Drug Dosing TNP Estimated GFR (MDRD) 43 (>60) mL/min BUN/Creatinine Ratio 21.7 H (14-18) Glucose 121 H (83-115) mg/dL Lactic Acid (0.4-2.0) mmol/L Calcium 10.0 (8.5-10.1) mg/dL Total Bilirubin 0.3 (0.2-1.0) mg/dL AST 18 (15-37) U/L ALT 20 (14-59) U/L Alkaline Phosphatase 65 (46-116) U/L C-Reactive Protein 4.6 H* (<1.0) mg/dL Total Protein 7.7 (6.4-8.2) g/dl Albumin 3.6 (3.4-5.0) g/dl Globulin 4.1 gm/dL Albumin/Globulin Ratio 0.9 L (1-2) Urine Color Yellow (Yellow) Urine Appearance Cloudy H (Clear) Urine pH 7.5 (5.0-8.0) Ur Specific [place] 1.020 (1.005-1.030) Urine Protein 2+ H (Negative) Urine Glucose (UA) Negative (Negative) Urine Ketones Negative (Negative) Urine Occult Blood 1+ H (Negative) Urine Nitrite Negative (Negative) Urine Bilirubin Negative (Negative) Urine Urobilinogen 0.2 (0.2-1.0) Ur Leukocyte Esterase 3+ H (Negative) Urine RBC 5-10 H (0-5) /hpf Urine WBC 40-50 H (0-5) /hpf Ur Epithelial Cells 5-10 H (0-5) /hpf Amorphous Sediment Moderate H (NOT SEEN) /hpf Urine Bacteria Many H (FEW) /hpf Urine Mucus Not seen (FEW) /hpf 12/04/17 Range/Units 15:05 WBC (3.98-10.04) K/mm3 RBC (3.98-5.22) M/mm3 Hgb (11.2-15.7) gm/L Hct (34.1-44.9) % MCV (79.4-94.8) fl MCH (25.6-32.2) pg MCHC (32.2-35.5) g/dl RDW Std Deviation (36.4-46.3) fL Plt Count (182-369) K/mm3 MPV (9.4-12.3) fl Neutrophils % (Manual) (40-60) % Band Neutrophils % (0-10) % Lymphocytes % (Manual) (20-40) % Atypical Lymphs % % Monocytes % (Manual) (2-10) % Eosinophils % (Manual) (0.7-5.8) % Basophils % (Manual) (0.1-1.2) Toxic Granulation Platelet Estimate Plt Morphology Comment Anisocytosis RBC Morph Comment Sodium (136-145) mEq/L Potassium (3.5-5.1) mEq/L Chloride (98-107) mEq/L Carbon Dioxide (21-32) mEq/L Anion Gap (5-15) BUN (7-18) mg/dL Creatinine (0.55-1.02) mg/dL Est Cr Clr Drug Dosing Estimated GFR (MDRD) (>60) mL/min BUN/Creatinine Ratio (14-18) Glucose (83-115) mg/dL Lactic Acid 1.0 (0.4-2.0) mmol/L Calcium (8.5-10.1) mg/dL Total Bilirubin (0.2-1.0) mg/dL AST (15-37) U/L ALT (14-59) U/L Alkaline Phosphatase (46-116) U/L C-Reactive Protein (<1.0) mg/dL Total Protein (6.4-8.2) g/dl Albumin (3.4-5.0) g/dl Globulin gm/dL Albumin/Globulin Ratio (1-2) Urine Color (Yellow) Urine Appearance (Clear) Urine pH (5.0-8.0) Ur Specific [place] (1.005-1.030) Urine Protein (Negative) Urine Glucose (UA) (Negative) Urine Ketones (Negative) Urine Occult Blood (Negative) Urine Nitrite (Negative) Urine Bilirubin (Negative) Urine Urobilinogen (0.2-1.0) Ur Leukocyte Esterase (Negative) Urine RBC (0-5) /hpf Urine WBC (0-5) /hpf Ur Epithelial Cells (0-5) /hpf Amorphous Sediment (NOT SEEN) /hpf Urine Bacteria (FEW) /hpf Urine Mucus (FEW) /hpf Result Diagrams: 12/04/17 15:05 12/04/17 15:05 Maurisio Results Last 24 hrs: Microbiology 12/04/17 14:59 Influenza Type A Antigen Screen - Final Nasopharyngeal Swab NEGATIVE INFLUENZA A VIRUS AG Influenza Type B Antigen Screen - Final NEGATIVE INFLUENZA B VIRUS AG *Q Meaningful Use (ADM) - VTE *Q VTE Criteria *Q: - Stroke *Q Stroke Criteria *Q: - AMI *Q AMI Criteria *Q: - Problem List (1) UTI (urinary tract infection) SNOMED Code(s): 75047213 ICD Code: N39.0 - URINARY TRACT INFECTION, SITE NOT SPECIFIED Status: Acute Priority: High Current Visit: Yes Qualifiers: Urinary tract infection type: acute cystitis Hematuria presence: with hematuria Qualified Code(s): N30.01 - Acute cystitis with hematuria (2) Pneumonia SNOMED Code(s): 817597023 ICD Code: J18.9 - PNEUMONIA, UNSPECIFIED ORGANISM Status: Suspected Priority: High Current Visit: Yes Qualifiers: Pneumonia type: aspiration pneumonia Aspiration pneumonia type: unspecified Laterality: left Lung location: lower lobe of lung Qualified Code(s): J69.0 - Pneumonitis due to inhalation of food and vomit (3) RAAFEL (acute kidney injury) SNOMED Code(s): 11156797 ICD Code: N17.9 - ACUTE KIDNEY FAILURE, UNSPECIFIED Status: Acute Priority: High Current Visit: Yes (4) Alzheimer's disease with late onset SNOMED Code(s): 136448158 ICD Code: G30.1 - ALZHEIMER'S DISEASE WITH LATE ONSET; F02.80 - DEMENTIA IN OTH DISEASES CLASSD ELSWHR W/O BEHAVRL DISTURB Status: Chronic Priority: High Current Visit: Yes Qualifiers: Dementia behavioral disturbance: with behavioral disturbance Qualified Code (s): G30.1 - Alzheimer's disease with late onset; F02.81 - Dementia in other diseases classified elsewhere with behavioral disturbance; F02.81 - Dementia in other diseases classified elsewhere with behavioral disturbance; F02.81 - Dementia in other diseases classified elsewhere with behavioral disturbance (5) Dementia in other diseases classified elsewhere with behavioral disturbance SNOMED Code(s): 136578790 ICD Code: F02.81 - DEMENTIA IN OTH DISEASES CLASSD ELSWHR W BEHAVIORAL DISTURB Status: Chronic Priority: High Current Visit: Yes (6) Paranoid schizophrenia SNOMED Code(s): 67333308 ICD Code: F20.0 - PARANOID SCHIZOPHRENIA Status: Chronic Priority: Medium Current Visit: Yes (7) Generalized anxiety disorder SNOMED Code(s): 23609756 ICD Code: F41.1 - GENERALIZED ANXIETY DISORDER Status: Chronic Priority: Medium Current Visit: No (8) Major depressive disorder, recurrent, mild SNOMED Code(s): 241645976 ICD Code: F33.0 - MAJOR DEPRESSIVE DISORDER, RECURRENT, MILD Status: Chronic Priority: Low Current Visit: No (9) Dysphagia SNOMED Code(s): 20728364 ICD Code: R13.10 - DYSPHAGIA, UNSPECIFIED Status: Chronic Priority: Medium Current Visit: Yes Qualifiers: Dysphagia type: unspecified Qualified Code(s): R13.10 - Dysphagia, unspecified (10) Personal history of nicotine dependence SNOMED Code(s): 95723543 ICD Code: Z87.891 - PERSONAL HISTORY OF NICOTINE DEPENDENCE Status: Chronic Priority: Low Current Visit: No (11) Hyperlipidemia SNOMED Code(s): 56347442 ICD Code: E78.5 - HYPERLIPIDEMIA, UNSPECIFIED Status: Chronic Priority: Low Current Visit: No Qualifiers: Hyperlipidemia type: pure hypercholesterolemia Qualified Code(s): E78.00 - Pure hypercholesterolemia, unspecified; E78.0 - Pure hypercholesterolemia (12) Primary generalized (osteo)arthritis SNOMED Code(s): 687500260 ICD Code: M15.0 - PRIMARY GENERALIZED (OSTEO)ARTHRITIS Status: Chronic Priority: Low Current Visit: No (13) Hypertensive heart disease with heart failure Status: Chronic Priority: Low Current Visit: No (14) Heart failure SNOMED Code(s): 04475398 ICD Code: I50.9 - HEART FAILURE, UNSPECIFIED Status: Chronic Priority: Medium Current Visit: Yes Qualifiers: Heart failure type: unspecified Heart failure chronicity: unspecified Qualified Code(s): I50.9 - Heart failure, unspecified (15) Presence of artificial hip joint SNOMED Code(s): 988597946 ICD Code: Z96.649 - PRESENCE OF UNSPECIFIED ARTIFICIAL HIP JOINT Status: Chronic Priority: Low Current Visit: No Qualifiers: Laterality: unspecified laterality Qualified Code(s): Z96.649 - Presence of unspecified artificial hip joint (16) Gastro-esophageal reflux disease without esophagitis SNOMED Code(s): 832485092 ICD Code: K21.9 - GASTRO-ESOPHAGEAL REFLUX DISEASE WITHOUT ESOPHAGITIS Status: Acute Current Visit: Yes (17) Mixed incontinence SNOMED Code(s): 885989274 ICD Code: N39.46 - MIXED INCONTINENCE Status: Chronic Priority: Medium Current Visit: Yes (18) Glaucoma SNOMED Code(s): 33563257 ICD Code: H40.9 - UNSPECIFIED GLAUCOMA Status: Chronic Priority: Low Current Visit: No Qualifiers: Glaucoma type: unspecified Laterality: unspecified laterality Qualified Code(s): H40.9 - Unspecified glaucoma (19) Exudative age-related macular degeneration SNOMED Code(s): 253959869 ICD Code: H35.3290 - EXUDATIVE AGE-RELATED MCLR DEGN, UNSP, STAGE UNSPECIFIED Status: Chronic Priority: Low Current Visit: No Qualifiers: Exudative macular degeneration stage: unspecified stage Eye laterality: unspecified Qualified Code(s): H35.3290 - Exudative age-related macular degeneration, unspecified eye, stage unspecified (20) Dysthymic disorder SNOMED Code(s): 85517576 ICD Code: F34.1 - DYSTHYMIC DISORDER Status: Chronic Priority: Low Current Visit: No (21) Type 2 diabetes mellitus without complications SNOMED Code(s): 133258037 ICD Code: E11.9 - TYPE 2 DIABETES MELLITUS WITHOUT COMPLICATIONS Status: Chronic Priority: Medium Current Visit: Yes Qualifiers: Diabetes mellitus termite treater helper insulin use: without correction use Qualified Code(s): E11.9 - Type 2 diabetes mellitus without complications Problem List Initiated/Reviewed/Updated: Yes Orders Last 24hrs: Active Orders 24 hr Category Date Time Status Insert Lopez Catheter [Insert Urinary Catheter] [OM.PC] Care 12/04/17 14:54 Ordered Stat Oxygen Therapy [RC] ASDIRECTED Care 12/04/17 16:05 Active Peripheral IV Care [RC] . DIRECTED Care 12/04/17 14:47 Active Urinary Catheter Assessment [RC] ASDIRECTED Care 12/04/17 14:54 Active CULTURE BLOOD [BC] Stat Lab 12/04/17 15:05 Received CULTURE BLOOD [BC] Stat Lab 12/04/17 15:15 Received CULTURE URINE [RM] Stat Lab 12/04/17 14:54 Received Sodium Chloride 0.9% [Normal Saline] 1,000 ml Med 12/04/17 15:55 Active IV ONETIME Sodium Chloride 0.9% [Saline Flush] Med 12/04/17 14:47 Active 10 ml FLUSH ASDIRECTED PRN Blood Culture x2 Reflex Set [OM.PC] Stat Oth 12/04/17 14:47 Ordered Peripheral IV Insertion Adult [OM.PC] Routine Oth 12/04/17 14:46 Ordered Medication Orders Sodium Chloride (Normal Saline) 1,000 mls @ 100 mls/hr IV ONETIME ONE Stop: 12/05/17 01:54 Sodium Chloride (Saline Flush) 10 ml FLUSH ASDIRECTED PRN PRN Reason: Keep Vein Open Last Admin: 12/04/17 15:00 Dose: 10 ml Assessment/Plan Comment:: I/P: Acute: UTI -UA positive in ED although some contamination noted as well -Urine Cultures pending -SNF reports fever treated with tylenol and worsened confusion -Risk factor: incontinence -Fluids as ordered -Rocephin given in ED, will switch to Levaquin 750mg -Tylenol for fever Pneumonia -Suspect aspiration pneumonia due to increased confusion, hx/o dysphagia -SNF reports fever of 100.4 -Rhonchi and wheezing on physical exam -Mild Leukocytosis - WBC 10.54 -CRP 4.6 -Lactic acid 1.0 -Duonebs -RT (IS and Acapella if AMS improves) -Fluids as ordered -Levaquin 750mg as above -CXR shows slight parenchymal density behind heart suspicious for small area of PNA -Repeat CXR in 24-48 hrs -Sputum culture if AMS improves and pt. able to provide sample AMS -Essentially unresponsive on exam -Likely 2/2 above -NPO for now -Normally alert but very confused per daughter in-law -Normally NDD1 pureed diet with thin liquids, required feeding assistance -DNR/DNI -Monitor RAFAEL -Likely 2/2 poor oral intake -Prior visit in 05/2017 and prior [place] notes show normal kidney function -BUN 26 -Creatinine 1.2 -eGFR 43 -IV fluids as ordered; caution with hx/o CHF -Avoid nephrotoxic drugs Chronic: (NPO so hold most home meds) Late onset Alzheimer's disease Dementia with behavioral disturbance Paranoid schizophrenia Anxiety Major depressive disorder Dysphagia Osteoarthritis HLD HTN - Hydralizine and BB Heart failure Frequent UTIs GERD - PPI Incontinence Glaucoma Macular Degeneration Dysthymic disorder Type II DM - QID AC and Bedtime glucose checks, Sliding scale insulin Chronic constipation Plan: Admit to medical floor on telemetry CM/SW for discharge planning - resident of [facility] PT/OT if AMS improves Routine AM labs Other orders as indicated above Spiritual care consult Home medications DVT prophylaxis: SCDs Code status: DNR/DNI; PCP: Dr. Foster at [facility].
[2017-12-04] MEDS ORDERED: Levofloxacin/Dextrose 5%-Water 750 MG in Premix Bag 1 BAG IV SCH (17:00)
[2017-12-04] MEDS ORDERED: 50% Dextrose in Water 50 ML Syringe IVPUSH PRN (17:05)
[2017-12-04] MEDS ORDERED: hydrALAZINE 20 MG/ML SDV IVPUSH PRN (17:07)
[2017-12-04] MEDS ORDERED: Metoprolol Tartrate 5 MG/5 ML SDV IVPUSH PRN (17:07)
[2017-12-04] MEDS: Pantoprazole 40 MG Vial IVPUSH SCH (18:47)
[2017-12-04] MEDS: Albuterol/Ipratropium 3.0-0.5 MG/3 ML Neb Soln NEB SCH (20:41)
[2017-12-04] MEDS ORDERED: Sodium Chloride 0.9% 1,000 ML IV SCH (21:45)
[2017-12-04] MEDS: Insulin Aspart 100 Units/ML 3 ML Pen SUBCUT SCH (21:59)
[2017-12-05] MEDS: Albuterol/Ipratropium 3.0-0.5 MG/3 ML Neb Soln NEB SCH ×4 (02:26→23:04)
[2017-12-05] MEDS: Insulin Aspart 100 Units/ML 3 ML Pen SUBCUT SCH ×4 (06:23→21:04)
[2017-12-05] MEDS ORDERED: Furosemide 20 MG/2 ML VIAL IVPUSH SCH (09:00)
[2017-12-05] MEDS ORDERED: Magnesium Sulfate/Water 2 GM in Premix Bag 1 BAG IV ONE (09:00)
[2017-12-05] MEDS: Latanoprost 0.005% Ophth Soln 2.5 ML Bottle EYERT SCH (09:02)
[2017-12-05] MEDS: Pantoprazole 40 MG Vial IVPUSH SCH (09:02)
--- NOTE | 2017-12-05 11:30 | PCM.PN ---
- General Info Date of Service: 12/05/17 Admission Dx/Problem (Free Text): UTI, Pneumonia Subjective Update: In to see [place] today. She is lying in bed. She responds to my questions. She denies any pain. She does take a deep breath when asked. Family is at bedside and reports she is more sleepy than normal but basically at baseline when I ask questions. Nursing bedside swallow screen ordered as well as FIELD AUTO APPRAISER evaluation. Will resume home meds and place diet order pending FIELD AUT[employer] APPRAISER recommendations. Currently on 3L but usually has 2L at home. Functional Status: Reports: Pain Controlled, Urinating. Denies: New Symptoms - Review of Systems General: Reports: Weakness, Fatigue, Malaise. Denies: Fever HEENT: Reports: No Symptoms Pulmonary: Reports: No Symptoms Cardiovascular: Reports: No Symptoms Gastrointestinal: Reports: No Symptoms Genitourinary: Reports: No Symptoms Musculoskeletal: Reports: No Symptoms Skin: Reports: No Symptoms Neurological: Reports: No Symptoms Psychiatric: Reports: No Symptoms - Patient Data Vitals - Most Recent: Last Vital Signs Temp 99.8 F 12/05/17 09:08 Pulse 75 12/05/17 07:40 Resp 18 12/05/17 07:40 BP 130/72 12/05/17 07:47 Pulse Ox 94 L 12/05/17 10:00 Weight - Most Recent: 123 lb 11.2 oz I&O - Last 24 Hours: Intake & Output 12/04/17 12/05/17 12/05/17 22:59 06:59 14:59 Intake Total 1480 Balance 1480 Lab Results Last 24 Hours: Laboratory Results - last 24 hr 12/04/17 12/04/17 12/05/17 Range/Units 21:47 22:43 05:14 WBC 11.00 H (3.98-10.04) K/mm3 RBC 3.80 L (3.98-5.22) M/mm3 Hgb 11.9 (11.2-15.7) gm/L Hct 37.0 (34.1-44.9) % MCV 97.4 H (79.4-94.8) fl MCH 31.3 (25.6-32.2) pg MCHC 32.2 (32.2-35.5) g/dl RDW Std Deviation 48.5 H (36.4-46.3) fL Plt Count 163 L (182-369) K/mm3 MPV 10.1 (9.4-12.3) fl Neut % (Auto) 87.1 H (34.0-71.1) % Lymph % (Auto) 6.1 L (19.3-51.7) % Morris % (Auto) 6.7 (4.7-12.5) % Eos % (Auto) 0 L (0.7-5.8) Baso % (Auto) 0.1 (0.1-1.2) % Neut # (Auto) 9.58 H (1.56-6.13) K/mm3 Lymph # (Auto) 0.67 L (1.18-3.74) K/mm3 Morris # (Auto) 0.74 H (0.24-0.36) K/mm3 Eos # (Auto) 0.00 L (0.04-0.36) K/mm3 Baso # (Auto) 0.01 (0.01-0.08) K/mm3 Manual Slide Review Abnormal smear Sodium (136-145) mEq/L Potassium (3.5-5.1) mEq/L Chloride (98-107) mEq/L Carbon Dioxide (21-32) mEq/L Anion Gap (5-15) BUN (7-18) mg/dL Creatinine (0.55-1.02) mg/dL Est Cr Clr Drug Dosing mL/min Estimated GFR (MDRD) (>60) mL/min BUN/Creatinine Ratio (14-18) Glucose (83-115) mg/dL POC Glucose 130 H (83-110) mg/dL Calcium (8.5-10.1) mg/dL Magnesium (1.8-2.4) mg/dl C-Reactive Protein (<1.0) mg/dL NT-Pro-B Natriuret Pep (0-450) pg/mL MRSA (PCR) Negative 12/05/17 12/05/17 12/05/17 Range/Units 05:14 05:14 06:15 WBC (3.98-10.04) K/mm3 RBC (3.98-5.22) M/mm3 Hgb (11.2-15.7) gm/L Hct (34.1-44.9) % MCV (79.4-94.8) fl MCH (25.6-32.2) pg MCHC (32.2-35.5) g/dl RDW Std Deviation (36.4-46.3) fL Plt Count (182-369) K/mm3 MPV (9.4-12.3) fl Neut % (Auto) (34.0-71.1) % Lymph % (Auto) (19.3-51.7) % Morris % (Auto) (4.7-12.5) % Eos % (Auto) (0.7-5.8) Baso % (Auto) (0.1-1.2) % Neut # (Auto) (1.56-6.13) K/mm3 Lymph # (Auto) (1.18-3.74) K/mm3 Morris # (Auto) (0.24-0.36) K/mm3 Eos # (Auto) (0.04-0.36) K/mm3 Baso # (Auto) (0.01-0.08) K/mm3 Manual Slide Review Sodium 142 (136-145) mEq/L Potassium 3.6 (3.5-5.1) mEq/L Chloride 106 (98-107) mEq/L Carbon Dioxide 24 (21-32) mEq/L Anion Gap 15.6 H (5-15) BUN 23 H (7-18) mg/dL Creatinine 1.1 H (0.55-1.02) mg/dL Est Cr Clr Drug Dosing 30.65 mL/min Estimated GFR (MDRD) 47 (>60) mL/min BUN/Creatinine Ratio 20.9 H (14-18) Glucose 153 H (83-115) mg/dL POC Glucose 163 H (83-110) mg/dL Calcium 9.3 (8.5-10.1) mg/dL Magnesium 1.7 L (1.8-2.4) mg/dl C-Reactive Protein 11.4 H* (<1.0) mg/dL NT-Pro-B Natriuret Pep 694 H (0-450) pg/mL MRSA (PCR) Med Orders - Current: Current Medications Acetaminophen (Tylenol) 650 mg RECTAL Q4H PRN PRN Reason: Pain (mild 1-3) Albuterol/Ipratropium (Duoneb 3.0-0.5 Mg/3 Ml) 3 ml NEB Q6HRRT [facility] Last Admin: 12/05/17 08:54 Dose: 3 ml Dextrose/Water (Dextrose 50% In Water) 50 ml IVPUSH ASDIRECTED PRN PRN Reason: Hypoglycemia Furosemide (Lasix) 20 mg IVPUSH DAILY [facility] Last Admin: 12/05/17 09:02 Dose: 20 mg Hydralazine HCl (Apresoline) 10 mg IVPUSH Q6H PRN PRN Reason: Hypertension Levofloxacin/Dextrose 750 mg/ (Premix) 150 mls @ 100 mls/hr IV Q48H [facility] Insulin Aspart (Novolog) 0 unit SUBCUT QIDACANDBED [facility] PRN Reason: Protocol Last Admin: 12/05/17 06:23 Dose: Not Given Latanoprost (Xalatan 0.005% [facility]) 0 ml EYERT DAILY [facility] Last Admin: 12/05/17 09:02 Dose: 1 drop Magnesium Sulfate (Pharmacy To Dose - Magnesium Replacement) 1 dose .XX ASDIRECTED [facility] Metoprolol Tartrate (Lopressor) 5 mg IVPUSH Q4H PRN PRN Reason: Tachycardia Morphine Sulfate (Morphine) 0.5 mg IVPUSH Q2H PRN PRN Reason: Pain (severe 7-10) Stop: 12/05/17 16:54 Ondansetron HCl (Zofran) 4 mg IV Q6H PRN PRN Reason: Nausea/Vomiting Pantoprazole Sodium (Protonix Iv) 40 mg IVPUSH DAILY [facility] Last Admin: 12/05/17 09:02 Dose: 40 mg Potassium Chloride (Pharmacy To Dose - Potassium Replacement) 1 dose .XX ASDIRECTED [facility] Sodium Chloride (Saline Flush) 10 ml FLUSH ASDIRECTED PRN PRN Reason: Keep Vein Open Last Admin: 12/04/17 15:00 Dose: 10 ml Discontinued Medications Acetaminophen (Tylenol) 650 mg RECTAL NOW ONE Stop: 12/04/17 16:01 Last Admin: 12/04/17 17:01 Dose: 650 mg Sodium Chloride (Normal Saline) 500 mls @ 500 mls/hr IV ONETIME ONE Stop: 12/04/17 15:47 Last Admin: 12/04/17 15:22 Dose: 500 mls/hr Ceftriaxone Sodium 1 gm/ (Sodium Chloride) 100 mls @ 200 mls/hr IV ONETIME ONE Stop: 12/04/17 16:18 Last Admin: 12/04/17 16:05 Dose: 200 mls/hr Sodium Chloride (Normal Saline) 1,000 mls @ 100 mls/hr IV ONETIME ONE Stop: 12/05/17 01:54 Last Admin: 12/04/17 18:34 Dose: 100 mls/hr Levofloxacin/Dextrose 750 mg/ (Premix) 150 mls @ 100 mls/hr IV Q24H [facility] Last Admin: 12/04/17 17:15 Dose: 100 mls/hr Sodium Chloride (Normal Saline) 1,000 mls @ 75 mls/hr IV ASDIRECTED [facility] Stop: 12/05/17 11:04 Last Admin: 12/04/17 21:44 Dose: 75 mls/hr Magnesium Sulfate 2 gm/ Premix 50 mls @ 25 mls/hr IV ONETIME ONE Stop: 12/05/17 10:59 Last Admin: 12/05/17 09:03 Dose: 25 mls/hr - Exam Quality Assessment: Supplemental Oxygen, DVT Prophylaxis General: Alert, Cooperative, No Acute Distress, Other (still somewhat sleepy but responds when spoken to. ) HEENT: Pupils Equal, Pupils Reactive, EOMI, Mucous Membr. Moist/[place] Neck: Supple, Trachea Midline, No JVD Lungs: Normal Respiratory Effort, Decreased Breath Sounds, Rhonchi, Wheezing Cardiovascular: Regular Rate, Regular Rhythm GI/Abdominal Exam: Normal Bowel Sounds, Soft, Non-Tender, No Organomegaly, No Distention, No Abnormal Bruit, No Mass, Pelvis Stable (Female) Exam: Deferred Extremities: Normal Inspection, Non-Tender, No Pedal Edema, Normal Capillary Refill Peripheral Pulses: 3+: Radial (L), Radial (R), Posterior Tibial (L), Posterior Tibial (R), Dorsalis Pedis (L), Dorsalis Pedis (R) Skin: Warm, Dry, Intact Neurological: No New Focal Deficit Psy/Mental Status: Alert, Other (more alert than yesterday. Responds to verbal stimuli. Answers basic questions when asked. ) - Problem List & Annotations (1) UTI (urinary tract infection) SNOMED Code(s): 00677650 Code(s): N39.0 - URINARY TRACT INFECTION, SITE NOT SPECIFIED Status: Acute Priority: High Current Visit: Yes Qualifiers: Urinary tract infection type: acute cystitis Hematuria presence: with hematuria Qualified Code(s): N30.01 - Acute cystitis with hematuria (2) Pneumonia SNOMED Code(s): 848409380 Code(s): J18.9 - PNEUMONIA, UNSPECIFIED ORGANISM Status: Suspected Priority: High Current Visit: Yes Qualifiers: Pneumonia type: aspiration pneumonia Aspiration pneumonia type: unspecified Laterality: left Lung location: lower lobe of lung Qualified Code(s): J69.0 - Pneumonitis due to inhalation of food and vomit (3) RAFAEL (acute kidney injury) SNOMED Code(s): 02328447 Code(s): N17.9 - ACUTE KIDNEY FAILURE, UNSPECIFIED Status: Acute Priority : High Current Visit: Yes (4) Alzheimer's disease with late onset SNOMED Code(s): 355290644 Code(s): G30.1 - ALZHEIMER'S DISEASE WITH LATE ONSET; F02.80 - DEMENTIA IN OTH DISEASES CLASSD ELSWHR W/O BEHAVRL DISTURB Status: Chronic Priority: High Current Visit: Yes Qualifiers: Dementia behavioral disturbance: with behavioral disturbance Qualified Code (s): G30.1 - Alzheimer's disease with late onset; F02.81 - Dementia in other diseases classified elsewhere with behavioral disturbance; F02.81 - Dementia in other diseases classified elsewhere with behavioral disturbance; F02.81 - Dementia in other diseases classified elsewhere with behavioral disturbance (5) Dementia in other diseases classified elsewhere with behavioral disturbance SNOMED Code(s): 620903735 Code(s): F02.81 - DEMENTIA IN OTH DISEASES CLASSD ELSWHR W BEHAVIORAL DISTURB Status: Chronic Priority: High Current Visit: Yes (6) Paranoid schizophrenia SNOMED Code(s): 84706100 Code(s): F20.0 - PARANOID SCHIZOPHRENIA Status: Chronic Priority: Medium Current Visit: Yes (7) Generalized anxiety disorder SNOMED Code(s): 72994646 Code(s): F41.1 - GENERALIZED ANXIETY DISORDER Status: Chronic Priority: Medium Current Visit: No (8) Major depressive disorder, recurrent, mild SNOMED Code(s): 076418209 Code(s): F33.0 - MAJOR DEPRESSIVE DISORDER, RECURRENT, MILD Status: Chronic Priority: Low Current Visit: No (9) Dysphagia SNOMED Code(s): 57814514 Code(s): R13.10 - DYSPHAGIA, UNSPECIFIED Status: Chronic Priority: Medium Current Visit: Yes Qualifiers: Dysphagia type: unspecified Qualified Code(s): R13.10 - Dysphagia, unspecified (10) Personal history of nicotine dependence SNOMED Code(s): 74259328 Code(s): Z87.891 - PERSONAL HISTORY OF NICOTINE DEPENDENCE Status: Chronic Priority: Low Current Visit: No (11) Hyperlipidemia SNOMED Code(s): 94955140 Code(s): E78.5 - HYPERLIPIDEMIA, UNSPECIFIED Status: Chronic Priority: Low Current Visit: No Qualifiers: Hyperlipidemia type: pure hypercholesterolemia Qualified Code(s): E78.00 - Pure hypercholesterolemia, unspecified; E78.0 - Pure hypercholesterolemia (12) Primary generalized (osteo)arthritis SNOMED Code(s): 161490946 Code(s): M15.0 - PRIMARY GENERALIZED (OSTEO)ARTHRITIS Status: Chronic Priority: Low Current Visit: No (13) Hypertensive heart disease with heart failure Status: Chronic Priority: Low Current Visit: No (14) Heart failure SNOMED Code(s): 59134385 Code(s): I50.9 - HEART FAILURE, UNSPECIFIED Status: Chronic Priority: Medium Current Visit: Yes Qualifiers: Heart failure type: unspecified Heart failure chronicity: unspecified Qualified Code(s): I50.9 - Heart failure, unspecified (15) Presence of artificial hip joint SNOMED Code(s): 042308423 Code(s): Z96.649 - PRESENCE OF UNSPECIFIED ARTIFICIAL HIP JOINT Status: Chronic Priority: Low Current Visit: No Qualifiers: Laterality: unspecified laterality Qualified Code(s): Z96.649 - Presence of unspecified artificial hip joint (16) Gastro-esophageal reflux disease without esophagitis SNOMED Code(s): 699258658 Code(s): K21.9 - GASTRO-ESOPHAGEAL REFLUX DISEASE WITHOUT ESOPHAGITIS Status: Acute Current Visit: Yes (17) Mixed incontinence SNOMED Code(s): 415997442 Code(s): N39.46 - MIXED INCONTINENCE Status: Chronic Priority: Medium Current Visit: Yes (18) Glaucoma SNOMED Code(s): 17722641 Code(s): H40.9 - UNSPECIFIED GLAUCOMA Status: Chronic Priority: Low Current Visit: No Qualifiers: Glaucoma type: unspecified Laterality: unspecified laterality Qualified Code(s): H40.9 - Unspecified glaucoma (19) Exudative age-related macular degeneration SNOMED Code(s): 598192356 Code(s): H35.3290 - EXUDATIVE AGE-RELATED MCLR DEGN, UNSP, STAGE UNSPECIFIED Status: Chronic Priority: Low Current Visit: No Qualifiers: Exudative macular degeneration stage: unspecified stage Eye laterality: unspecified Qualified Code(s): H35.3290 - Exudative age-related macular degeneration, unspecified eye, stage unspecified (20) Dysthymic disorder SNOMED Code(s): 37005817 Code(s): F34.1 - DYSTHYMIC DISORDER Status: Chronic Priority: Low Current Visit: No (21) Type 2 diabetes mellitus without complications SNOMED Code(s): 758300884 Code(s): E11.9 - TYPE 2 DIABETES MELLITUS WITHOUT COMPLICATIONS Status: Chronic Priority: Medium Current Visit: Yes Qualifiers: Diabetes mellitus prison insulin use: without prison use Qualified Code(s): E11.9 - Type 2 diabetes mellitus without complications - Problem List Review Problem List Initiated/Reviewed/Updated: Yes - My Orders Last 24 Hours: My Active Orders 12/05/17 09:00 Furosemide [Lasix] 20 mg IVPUSH DAILY Latanoprost [Xalatan 0.005% Ophth Soln] 0 ml EYERT DAILY 12/06/17 17:00 Levofloxacin/Dextrose 5%-Water [Levaquin in D5W 750 MG/150 ML] 750 mg Premix Bag 1 bag IV Q48H - Plan Plan:: I/P: Acute: UTI -UA positive in ED although some contamination noted as well -Urine Cultures pending -> gram neg. rods, gram pos cocci so far, consider zosyn -SNF reports fever treated with tylenol and worsened confusion -Risk factor: incontinence -Fluids as ordered -Rocephin given in ED, will switch to Levaquin 750mg -Tylenol for fever Pneumonia -Suspect aspiration pneumonia due to increased confusion, hx/o dysphagia -SNF reports fever of 100.4 -Rhonchi and wheezing on physical exam -Mild Leukocytosis - WBC 10.54-->11 -CRP 4.6-->11.4 -Lactic acid 1.0 -Duonebs -RT (IS and Acapella if AMS improves) -Fluids as ordered -Levaquin 750mg as above -CXR shows slight parenchymal density behind heart suspicious for small area of PNA -Repeat CXR in 24-48 hrs -Sputum culture if AMS improves and pt. able to provide sample AMS -Essentially unresponsive on exam -->improved today, responding to verbal stimuli, follows basic commands -Likely 2/2 above -NPO for now--> nursing swallow eval and FIELD AUT[employer] APPRAISER to evaluate -Normally alert but very confused per daughter in-law -Normally NDD1 pureed diet with thin liquids, required feeding assistance -DNR/DNI -Monitor RAFAEL -Likely 2/2 poor oral intake -Prior visit in 05/2017 and prior [place] notes show normal kidney function -BUN 26-->23 -Creatinine 1.2-->1.1 -eGFR 43-->47 -IV fluids as ordered; caution with hx/o CHF -Avoid nephrotoxic drugs Chronic: (NPO so hold most home meds) Late onset Alzheimer's disease Dementia with behavioral disturbance Paranoid schizophrenia Anxiety Major depressive disorder Dysphagia Osteoarthritis HLD HTN - Hydralizine and BB Heart failure Frequent UTIs GERD - PPI Incontinence Glaucoma Macular Degeneration Dysthymic disorder Type II DM - QID AC and Bedtime glucose checks, Sliding scale insulin Chronic constipation Plan: Admit to medical floor on telemetry CM/SW for discharge planning - resident of [facility] PT/OT if AMS improves Routine AM labs Other orders as indicated above Spiritual care consult Home medications DVT prophylaxis: SCDs Code status: DNR/DNI; PCP: Dr. Foster at [facility].
[2017-12-05] MEDS: Dextrose 5%-0.9% NaCl 1,000 ML IV SCH (12:15)
[2017-12-05] MEDS ORDERED: Acetaminophen 325 MG Tab PO PRN (18:37)
[2017-12-05] MEDS: metFORMIN 500 MG Tab PO SCH (21:00)
[2017-12-05] MEDS: Donepezil 10 MG Tab PO SCH (21:03)
[2017-12-05] MEDS: glipiZIDE 5 MG Tab PO SCH (21:03)
[2017-12-05] MEDS: risperiDONE 1 MG Tab PO SCH (21:03)
[2017-12-05] MEDS: busPIRone 5 MG Tab PO SCH (21:03)
[2017-12-06] MEDS: Albuterol/Ipratropium 3.0-0.5 MG/3 ML Neb Soln NEB SCH ×4 (03:19→20:00)
[2017-12-06] MEDS: Dextrose 5%-0.9% NaCl 1,000 ML IV SCH (03:46)
--- NOTE | 2017-12-06 08:46 | CR ---
Chest: Portable view of the chest was obtained in both frontal and lateral projections. Comparison: Prior chest x-ray of 12/04/17. Increased density is noted within both lung bases. Findings are slightly changing from previous exam raising the possibility of aspiration. Upper lungs are clear. Heart size appears within normal limits for portable technique. Tortuous thoracic aorta is seen. Bony structures are osteopenic. Compression deformities are seen within the spine. Scoliosis is also present. Impression: 1. Changing opacities within both lung bases raising the possibility of aspiration. Please correlate. 2. Other incidental findings. Diagnostic code #3
[2017-12-06] MEDS ORDERED: Non-Formulary Medication 1 Each (Valsartan [Diovan] 80 MG) PO SCH (09:00)
[2017-12-06] MEDS: Losartan 25 MG Tab PO SCH (09:02)
[2017-12-06] MEDS: Donepezil 10 MG Tab PO SCH ×2 (09:03→21:34)
[2017-12-06] MEDS: Furosemide 40 MG Tab PO SCH (09:03)
[2017-12-06] MEDS: risperiDONE 1 MG Tab PO SCH ×2 (09:03→21:33)
[2017-12-06] MEDS: busPIRone 5 MG Tab PO SCH ×3 (09:04→21:35)
[2017-12-06] MEDS: glipiZIDE 5 MG Tab PO SCH ×2 (09:05→21:34)
[2017-12-06] MEDS: Potassium Chloride 20 MEQ Tab.ER PO SCH ×4 (09:05→17:15)
[2017-12-06] MEDS: metFORMIN 500 MG Tab PO SCH ×2 (09:06→21:33)
[2017-12-06] MEDS: Sertraline 50 MG Tab PO SCH (09:13)
[2017-12-06] MEDS: Insulin Aspart 100 Units/ML 3 ML Pen SUBCUT SCH ×4 (09:15→21:19)
[2017-12-06] MEDS: Pantoprazole 40 MG Vial IVPUSH SCH (09:17)
[2017-12-06] MEDS: Latanoprost 0.005% Ophth Soln 2.5 ML Bottle EYERT SCH (09:24)
--- NOTE | 2017-12-06 09:33 | PCM.PN ---
- General Info Date of Service: 12/06/17 Admission Dx/Problem (Free Text): UTI, Pneumonia Subjective Update: In to see [place] today. She has had a low grade fever and was given some Tylenol earlier in the day however she was unable to finish it all with her pudding. Will give rectal Tylenol. She is alone in the room. She is less active than yesterday. Her HR is somewhat irregular today. ICU reports frequent PACs. Urine culture shows resistance to levaquin and high ANIL for zosyn so we will switch her to Rocephin which should cover well for aspiration PNA and add metronidazole. Fluids have been stopped for now. She has been eating. Functional Status: Reports: Pain Controlled, Tolerating Diet, Urinating. Denies : New Symptoms - Review of Systems General: Reports: Fever, Weakness, Fatigue, Malaise HEENT: Reports: No Symptoms Pulmonary: Reports: No Symptoms Cardiovascular: Reports: No Symptoms Gastrointestinal: Reports: No Symptoms Genitourinary: Reports: No Symptoms Musculoskeletal: Reports: No Symptoms Skin: Reports: No Symptoms Neurological: Reports: No Symptoms Psychiatric: Reports: No Symptoms - Patient Data Vitals - Most Recent: Last Vital Signs Temp 97.3 F 12/06/17 07:53 Pulse 78 12/06/17 07:53 Resp 15 12/06/17 07:53 BP 155/72 H 12/06/17 09:02 Pulse Ox 97 12/06/17 08:54 Weight - Most Recent: 122 lb 6.4 oz I&O - Last 24 Hours: Intake & Output 12/05/17 12/06/17 12/06/17 22:59 06:59 14:59 Intake Total 1182 619 Balance 1182 619 Lab Results Last 24 Hours: Laboratory Results - last 24 hr 12/05/17 12/05/17 12/05/17 Range/Units 11:49 17:58 20:54 WBC (3.98-10.04) K/mm3 RBC (3.98-5.22) M/mm3 Hgb (11.2-15.7) gm/L Hct (34.1-44.9) % MCV (79.4-94.8) fl MCH (25.6-32.2) pg MCHC (32.2-35.5) g/dl RDW Std Deviation (36.4-46.3) fL Plt Count (182-369) K/mm3 MPV (9.4-12.3) fl Neut % (Auto) (34.0-71.1) % Lymph % (Auto) (19.3-51.7) % [place] % (Auto) (4.7-12.5) % Eos % (Auto) (0.7-5.8) Baso % (Auto) (0.1-1.2) % Neut # (Auto) (1.56-6.13) K/mm3 Lymph # (Auto) (1.18-3.74) K/mm3 [place] # (Auto) (0.24-0.36) K/mm3 Eos # (Auto) (0.04-0.36) K/mm3 Baso # (Auto) (0.01-0.08) K/mm3 Manual Slide Review Sodium (136-145) mEq/L Potassium (3.5-5.1) mEq/L Chloride (98-107) mEq/L Carbon Dioxide (21-32) mEq/L Anion Gap (5-15) BUN (7-18) mg/dL Creatinine (0.55-1.02) mg/dL Est Cr Clr Drug Dosing mL/min Estimated GFR (MDRD) (>60) mL/min BUN/Creatinine Ratio (14-18) Glucose (83-115) mg/dL POC Glucose 166 H 206 H 166 H (83-110) mg/dL Calcium (8.5-10.1) mg/dL Magnesium (1.8-2.4) mg/dl C-Reactive Protein (<1.0) mg/dL 12/06/17 12/06/17 12/06/17 Range/Units 06:26 06:55 06:55 WBC 7.70 (3.98-10.04) K/mm3 RBC 3.80 L (3.98-5.22) M/mm3 Hgb 11.8 (11.2-15.7) gm/L Hct 36.3 (34.1-44.9) % MCV 95.5 H (79.4-94.8) fl MCH 31.1 (25.6-32.2) pg MCHC 32.5 (32.2-35.5) g/dl RDW Std Deviation 47.2 H (36.4-46.3) fL Plt Count 154 L (182-369) K/mm3 MPV 9.9 (9.4-12.3) fl Neut % (Auto) 85.7 H (34.0-71.1) % Lymph % (Auto) 7.1 L (19.3-51.7) % [place] % (Auto) 7.1 (4.7-12.5) % Eos % (Auto) 0 L (0.7-5.8) Baso % (Auto) 0.1 (0.1-1.2) % Neut # (Auto) 6.59 H (1.56-6.13) K/mm3 Lymph # (Auto) 0.55 L (1.18-3.74) K/mm3 [place] # (Auto) 0.55 H (0.24-0.36) K/mm3 Eos # (Auto) 0.00 L (0.04-0.36) K/mm3 Baso # (Auto) 0.01 (0.01-0.08) K/mm3 Manual Slide Review Abnormal smear Sodium 145 (136-145) mEq/L Potassium 2.6 L (3.5-5.1) mEq/L Chloride 108 H (98-107) mEq/L Carbon Dioxide 24 (21-32) mEq/L Anion Gap 15.6 H (5-15) BUN 16 (7-18) mg/dL Creatinine 0.8 (0.55-1.02) mg/dL Est Cr Clr Drug Dosing 42.14 mL/min Estimated GFR (MDRD) > 60 (>60) mL/min BUN/Creatinine Ratio 20.0 H (14-18) Glucose 191 H (83-115) mg/dL POC Glucose 186 H (83-110) mg/dL Calcium 9.6 (8.5-10.1) mg/dL Magnesium 1.9 (1.8-2.4) mg/dl C-Reactive Protein 14.4 H* (<1.0) mg/dL Med Orders - Current: Current Medications Acetaminophen (Tylenol) 650 mg PO Q4H PRN PRN Reason: pain (mild 1-3) Albuterol/Ipratropium (Duoneb 3.0-0.5 Mg/3 Ml) 3 ml NEB Q6HRRT PENDING SALE TO [facility] Last Admin: 12/06/17 08:54 Dose: 3 ml Buspirone HCl (Buspar) 10 mg PO TID PENDING SALE TO [facility] Last Admin: 12/06/17 09:04 Dose: 10 mg Dextrose/Water (Dextrose 50% In Water) 50 ml IVPUSH ASDIRECTED PRN PRN Reason: Hypoglycemia Donepezil HCl (Aricept) 10 mg PO BID PENDING SALE TO [facility] Last Admin: 12/06/17 09:03 Dose: 10 mg Furosemide (Lasix) 40 mg PO DAILY PENDING SALE TO [facility] Last Admin: 12/06/17 09:03 Dose: 40 mg Glipizide (Glucotrol) 5 mg PO BID PENDING SALE TO [facility] Last Admin: 12/06/17 09:05 Dose: 5 mg Hydralazine HCl (Apresoline) 10 mg IVPUSH Q6H PRN PRN Reason: Hypertension Levofloxacin/Dextrose 750 mg/ (Premix) 150 mls @ 100 mls/hr IV Q48H PENDING SALE TO [facility] Dextrose/Sodium Chloride (Dextrose 5%-Normal Saline) 1,000 mls @ 75 mls/hr IV ASDIRECTED PENDING SALE TO [facility] Last Admin: 12/06/17 03:46 Dose: 75 mls/hr Insulin Aspart (Novolog) 0 unit SUBCUT QIDACANDBED PENDING SALE TO [facility] PRN Reason: Protocol Last Admin: 12/06/17 09:15 Dose: 1 units Latanoprost (Xalatan 0.005% [facility]) 0 ml EYERT DAILY PENDING SALE TO [facility] Last Admin: 12/06/17 09:24 Dose: 1 drop Losartan Potassium (Cozaar) 50 mg PO DAILY PENDING SALE TO [facility] Last Admin: 12/06/17 09:02 Dose: 50 mg Magnesium Sulfate (Pharmacy To Dose - Magnesium Replacement) 1 dose .XX ASDIRECTED PENDING SALE TO [facility] Metformin HCl (Glucophage) 125 mg PO BID PENDING SALE TO [facility] Last Admin: 12/06/17 09:06 Dose: 125 mg Metoprolol Tartrate (Lopressor) 5 mg IVPUSH Q4H PRN PRN Reason: Tachycardia Ondansetron HCl (Zofran) 4 mg IV Q6H PRN PRN Reason: Nausea/Vomiting Pantoprazole Sodium (Protonix Iv) 40 mg IVPUSH DAILY PENDING SALE TO [facility] Last Admin: 12/06/17 09:17 Dose: 40 mg Potassium Chloride (Pharmacy To Dose - Potassium Replacement) 1 dose .XX ASDIRECTED PENDING SALE TO [facility] Potassium Chloride (Klor-Con M20) 20 meq PO DAILY PENDING SALE TO [facility] Last Admin: 12/06/17 09:05 Dose: 20 meq Potassium Chloride (Klor-Con M20) 40 meq PO Q4H PENDING SALE TO [facility] Stop: 12/06/17 17:01 Last Admin: 12/06/17 09:24 Dose: 40 meq Risperidone (Risperidal) 2 mg PO DAILY PENDING SALE TO [facility] Last Admin: 12/06/17 09:03 Dose: 2 mg Risperidone (Risperidal) 3 mg PO BEDTIME PENDING SALE TO [facility] Last Admin: 12/05/17 21:03 Dose: 3 mg Senna/Docusate Sodium (Senna Plus) 1 tab PO DAILY PENDING SALE TO [facility] Last Admin: 12/06/17 09:04 Dose: 1 tab Sertraline HCl (Zoloft) 200 mg PO DAILY PENDING SALE TO [facility] Last Admin: 12/06/17 09:13 Dose: 200 mg Sodium Chloride (Saline Flush) 10 ml FLUSH ASDIRECTED PRN PRN Reason: Keep Vein Open Last Admin: 12/04/17 15:00 Dose: 10 ml Discontinued Medications Acetaminophen (Tylenol) 650 mg RECTAL NOW ONE Stop: 12/04/17 16:01 Last Admin: 12/04/17 17:01 Dose: 650 mg Acetaminophen (Tylenol) 650 mg RECTAL Q4H PRN PRN Reason: Pain (mild 1-3) Furosemide (Lasix) 20 mg IVPUSH DAILY PENDING SALE TO [facility] Last Admin: 12/05/17 09:02 Dose: 20 mg Sodium Chloride (Normal Saline) 500 mls @ 500 mls/hr IV ONETIME ONE Stop: 12/04/17 15:47 Last Admin: 12/04/17 15:22 Dose: 500 mls/hr Ceftriaxone Sodium 1 gm/ (Sodium Chloride) 100 mls @ 200 mls/hr IV ONETIME ONE Stop: 12/04/17 16:18 Last Admin: 12/04/17 16:05 Dose: 200 mls/hr Sodium Chloride (Normal Saline) 1,000 mls @ 100 mls/hr IV ONETIME ONE Stop: 12/05/17 01:54 Last Admin: 12/04/17 18:34 Dose: 100 mls/hr Levofloxacin/Dextrose 750 mg/ (Premix) 150 mls @ 100 mls/hr IV Q24H PENDING SALE TO [facility] Last Admin: 12/04/17 17:15 Dose: 100 mls/hr Sodium Chloride (Normal Saline) 1,000 mls @ 75 mls/hr IV ASDIRECTED ELEAZAR Stop: 12/05/17 11:04 Last Admin: 12/04/17 21:44 Dose: 75 mls/hr Magnesium Sulfate 2 gm/ Premix 50 mls @ 25 mls/hr IV ONETIME ONE Stop: 12/05/17 10:59 Last Admin: 12/05/17 09:03 Dose: 25 mls/hr Morphine Sulfate (Morphine) 0.5 mg IVPUSH Q2H PRN PRN Reason: Pain (severe 7-10) Stop: 12/05/17 16:54 - Exam Quality Assessment: Supplemental Oxygen, DVT Prophylaxis General: Alert (to verbal stimuli ), Cooperative HEENT: Pupils Equal, Pupils Reactive, EOMI, Other (dry mucous membraines ) Lungs: Normal Respiratory Effort, Decreased Breath Sounds, Rhonchi, Wheezing Cardiovascular: Regular Rate, Irregular Rhythm GI/Abdominal Exam: Normal Bowel Sounds, Soft, Non-Tender, No Organomegaly, No Distention, No Abnormal Bruit, No Mass, Pelvis Stable (Female) Exam: Deferred Extremities: Normal Inspection, Non-Tender, No Pedal Edema, Normal Capillary Refill Peripheral Pulses: 3+: Radial (L), Radial (R), Posterior Tibial (L), Posterior Tibial (R), Dorsalis Pedis (L), Dorsalis Pedis (R) Skin: Warm, Dry, Intact Neurological: No New Focal Deficit Psy/Mental Status: Alert, Normal Affect, Normal Mood - Problem List & Annotations (1) UTI (urinary tract infection) SNOMED Code(s): 01247920 Code(s): N39.0 - URINARY TRACT INFECTION, SITE NOT SPECIFIED Status: Acute Priority: High Current Visit: Yes Qualifiers: Urinary tract infection type: acute cystitis Hematuria presence: with hematuria Qualified Code(s): N30.01 - Acute cystitis with hematuria (2) Pneumonia SNOMED Code(s): 476522310 Code(s): J18.9 - PNEUMONIA, UNSPECIFIED ORGANISM Status: Suspected Priority: High Current Visit: Yes Qualifiers: Pneumonia type: aspiration pneumonia Aspiration pneumonia type: unspecified Laterality: bilateral Lung location: lower lobe of lung Qualified Code(s): J69.0 - Pneumonitis due to inhalation of food and vomit (3) RAFAEL (acute kidney injury) SNOMED Code(s): 22715879 Code(s): N17.9 - ACUTE KIDNEY FAILURE, UNSPECIFIED Status: Resolved Priority: High Current Visit: Yes (4) Alzheimer's disease with late onset SNOMED Code(s): 091609606 Code(s): G30.1 - ALZHEIMER'S DISEASE WITH LATE ONSET; F02.80 - DEMENTIA IN OTH DISEASES CLASSD ELSWHR W/O BEHAVRL DISTURB Status: Chronic Priority: High Current Visit: Yes Qualifiers: Dementia behavioral disturbance: with behavioral disturbance Qualified Code (s): G30.1 - Alzheimer's disease with late onset; F02.81 - Dementia in other diseases classified elsewhere with behavioral disturbance; F02.81 - Dementia in other diseases classified elsewhere with behavioral disturbance; F02.81 - Dementia in other diseases classified elsewhere with behavioral disturbance (5) Dementia in other diseases classified elsewhere with behavioral disturbance SNOMED Code(s): 058496810 Code(s): F02.81 - DEMENTIA IN OTH DISEASES CLASSD ELSWHR W BEHAVIORAL DISTURB Status: Chronic Priority: High Current Visit: Yes (6) Paranoid schizophrenia SNOMED Code(s): 13494830 Code(s): F20.0 - PARANOID SCHIZOPHRENIA Status: Chronic Priority: Medium Current Visit: Yes (7) Generalized anxiety disorder SNOMED Code(s): 07955707 Code(s): F41.1 - GENERALIZED ANXIETY DISORDER Status: Chronic Priority: Medium Current Visit: No (8) Major depressive disorder, recurrent, mild SNOMED Code(s): 890631416 Code(s): F33.0 - MAJOR DEPRESSIVE DISORDER, RECURRENT, MILD Status: Chronic Priority: Low Current Visit: No (9) Dysphagia SNOMED Code(s): 11921645 Code(s): R13.10 - DYSPHAGIA, UNSPECIFIED Status: Chronic Priority: Medium Current Visit: Yes Qualifiers: Dysphagia type: unspecified Qualified Code(s): R13.10 - Dysphagia, unspecified (10) Personal history of nicotine dependence SNOMED Code(s): 14924511 Code(s): Z87.891 - PERSONAL HISTORY OF NICOTINE DEPENDENCE Status: Chronic Priority: Low Current Visit: No (11) Hyperlipidemia SNOMED Code(s): 56621594 Code(s): E78.5 - HYPERLIPIDEMIA, UNSPECIFIED Status: Chronic Priority: Low Current Visit: No Qualifiers: Hyperlipidemia type: pure hypercholesterolemia Qualified Code(s): E78.00 - Pure hypercholesterolemia, unspecified; E78.0 - Pure hypercholesterolemia (12) Primary generalized (osteo)arthritis SNOMED Code(s): 925769517 Code(s): M15.0 - PRIMARY GENERALIZED (OSTEO)ARTHRITIS Status: Chronic Priority: Low Current Visit: No (13) Hypertensive heart disease with heart failure Status: Chronic Priority: Low Current Visit: No (14) Heart failure SNOMED Code(s): 67702463 Code(s): I50.9 - HEART FAILURE, UNSPECIFIED Status: Chronic Priority: Medium Current Visit: Yes Qualifiers: Heart failure type: unspecified Heart failure chronicity: unspecified Qualified Code(s): I50.9 - Heart failure, unspecified (15) Presence of artificial hip joint SNOMED Code(s): 938942546 Code(s): Z96.649 - PRESENCE OF UNSPECIFIED ARTIFICIAL HIP JOINT Status: Chronic Priority: Low Current Visit: No Qualifiers: Laterality: unspecified laterality Qualified Code(s): Z96.649 - Presence of unspecified artificial hip joint (16) Gastro-esophageal reflux disease without esophagitis SNOMED Code(s): 883169635 Code(s): K21.9 - GASTRO-ESOPHAGEAL REFLUX DISEASE WITHOUT ESOPHAGITIS Status: Acute Current Visit: Yes (17) Mixed incontinence SNOMED Code(s): 074005739 Code(s): N39.46 - MIXED INCONTINENCE Status: Chronic Priority: Medium Current Visit: Yes (18) Glaucoma SNOMED Code(s): 39543902 Code(s): H40.9 - UNSPECIFIED GLAUCOMA Status: Chronic Priority: Low Current Visit: No Qualifiers: Glaucoma type: unspecified Laterality: unspecified laterality Qualified Code(s): H40.9 - Unspecified glaucoma (19) Exudative age-related macular degeneration SNOMED Code(s): 908836929 Code(s): H35.3290 - EXUDATIVE AGE-RELATED MCLR DEGN, UNSP, STAGE UNSPECIFIED Status: Chronic Priority: Low Current Visit: No Qualifiers: Exudative macular degeneration stage: unspecified stage Eye laterality: unspecified Qualified Code(s): H35.3290 - Exudative age-related macular degeneration, unspecified eye, stage unspecified (20) Dysthymic disorder SNOMED Code(s): 66208664 Code(s): F34.1 - DYSTHYMIC DISORDER Status: Chronic Priority: Low Current Visit: No (21) Type 2 diabetes mellitus without complications SNOMED Code(s): 468034796 Code(s): E11.9 - TYPE 2 DIABETES MELLITUS WITHOUT COMPLICATIONS Status: Chronic Priority: Medium Current Visit: Yes Qualifiers: Diabetes mellitus long term care administrator insulin use: without halfway use Qualified Code(s): E11.9 - Type 2 diabetes mellitus without complications - Problem List Review Problem List Initiated/Reviewed/Updated: Yes - My Orders Last 24 Hours: My Active Orders 12/05/17 09:00 Latanoprost [Xalatan 0.005% Ophth Soln] 0 ml EYERT DAILY 12/05/17 11:56 Swallow Screen [Nursing Bedside Swallow Screen] [RC] ASDIRECTED 12/05/17 12:00 Dextrose 5%-0.9% NaCl [Dextrose 5%-Normal Saline] 1,000 ml IV ASDIRECTED 12/05/17 12:12 LIBRARY TECHNOLOGY INSTRUCTOR Evaluation and Treatment [CONS] Routine 12/05/17 16:15 Aspiration Precautions [RC] ASDIRECTED 12/05/17 18:37 Acetaminophen [Tylenol] 650 mg PO Q4H PRN 12/05/17 21:00 Donepezil [Aricept] 10 mg PO BID busPIRone [Buspar] 10 mg PO TID glipiZIDE [Glucotrol] 5 mg PO BID metFORMIN [Glucophage] 125 mg PO BID risperiDONE [RisperiDAL] 3 mg PO BEDTIME 12/06/17 09:00 Docusate Sodium/Sennosides [Senna Plus] 1 tab PO DAILY Furosemide [Lasix] 40 mg PO DAILY Losartan [Cozaar] 50 mg PO DAILY Potassium Chloride [Klor-Con M20] 20 meq PO DAILY Sertraline [Zoloft] 200 mg PO DAILY risperiDONE [RisperiDAL] 2 mg PO DAILY 12/06/17 17:00 Levofloxacin/Dextrose 5%-Water [Levaquin in D5W 750 MG/150 ML] 750 mg Premix Bag 1 bag IV Q48H - Plan Plan:: I/P: Acute: UTI -UA positive in ED although some contamination noted as well -Urine Cultures pending -> gram neg. rods, gram pos cocci so far -SNF reports fever treated with tylenol and worsened confusion -Risk factor: incontinence -Fluids as ordered -Rocephin given in ED, will switch to Levaquin 750mg -> resistance to levaquin and zosyn, resume Rocephin -Tylenol for fever Pneumonia -Suspect aspiration pneumonia due to increased confusion, hx/o dysphagia -SNF reports fever of 100.4, Occasional fevers here -Rhonchi and wheezing on physical exam -Mild Leukocytosis - WBC 10.54-->11 -CRP 4.6-->11.4 -Lactic acid 1.0 -Duonebs -RT (IS and Acapella if AMS improves) -Fluids as ordered -Levaquin 750mg as above--> Switch to Rocephin and add Metronidazole -CXR shows slight parenchymal density behind heart suspicious for small area of PNA -Repeat CXR shows "changing opacities within both lung bases raising the possibility of aspiration" -Repeat CXR in 48 hrs -Sputum culture if AMS improves and pt. able to provide sample AMS -Essentially unresponsive on exam -->improved today, responding to verbal stimuli, follows basic commands -Likely 2/2 above -NPO for now--> nursing swallow eval and LIBRARY TECHNOLOGY INSTRUCTOR to evaluate --> resume diet based on recommendations -Normally alert but very confused per daughter in-law -Normally NDD1 pureed diet with thin liquids, required feeding assistance -DNR/DNI -Monitor Resolved: RAFAEL -Likely 2/2 poor oral intake -Prior visit in 05/2017 and prior Comfort notes show normal kidney function -BUN 26-->23 -Creatinine 1.2-->1.1 -eGFR 43-->47 -IV fluids as ordered; caution with hx/o CHF -Avoid nephrotoxic drugs Chronic: (NPO so hold most home meds) Late onset Alzheimer's disease Dementia with behavioral disturbance Paranoid schizophrenia Anxiety Major depressive disorder Dysphagia Osteoarthritis HLD HTN - Hydralizine and BB Heart failure Frequent UTIs GERD - PPI Incontinence Glaucoma Macular Degeneration Dysthymic disorder Type II DM - QID AC and Bedtime glucose checks, Sliding scale insulin Chronic constipation Plan: Admit to medical floor on telemetry CM/SW for discharge planning - resident of [facility] PT/OT if AMS improves Routine AM labs Other orders as indicated above Spiritual care consult Home medications DVT prophylaxis: SCDs Code status: DNR/DNI; PCP: Dr. Foster at [facility].
[2017-12-06] MEDS ORDERED: Piperacillin/Tazobactam 4.5 GM in Sodium Chloride 0.9% 100 ML IV ONE (10:15)
[2017-12-06] MEDS ORDERED: Acetaminophen 650 MG Supp RECTAL PRN (15:25)
[2017-12-06] MEDS ORDERED: cefTRIAXone 1 GM in Sodium Chloride 0.9% 100 ML IV SCH (16:00)
[2017-12-06] MEDS ORDERED: Levofloxacin/Dextrose 5%-Water 750 MG in Premix Bag 1 BAG IV SCH (17:00)
[2017-12-06] MEDS: cefTRIAXone 1 GM in Sodium Chloride 0.9% 100 ML IV SCH (17:14)
[2017-12-06] MEDS: metroNIDAZOLE/Normal Saline 500 MG in Premix Bag 1 BAG IV SCH (17:14)
[2017-12-06] MEDS ORDERED: Piperacillin/Tazobactam 4.5 GM in Sodium Chloride 0.9% 100 ML IV SCH (18:00)
[2017-12-07] MEDS: metroNIDAZOLE/Normal Saline 500 MG in Premix Bag 1 BAG IV SCH ×5 (00:52→23:10)
[2017-12-07] MEDS: Albuterol/Ipratropium 3.0-0.5 MG/3 ML Neb Soln NEB SCH ×4 (02:00→20:20)
[2017-12-07] MEDS: Insulin Aspart 100 Units/ML 3 ML Pen SUBCUT SCH ×4 (06:36→23:19)
[2017-12-07] MEDS: Famotidine 20 MG Tab PO SCH ×2 (10:13→10:37)
[2017-12-07] MEDS: busPIRone 5 MG Tab PO SCH ×4 (10:15→21:23)
[2017-12-07] MEDS: risperiDONE 1 MG Tab PO SCH ×2 (10:16→21:21)
[2017-12-07] MEDS: Losartan 25 MG Tab PO SCH (10:16)
[2017-12-07] MEDS: metFORMIN 500 MG Tab PO SCH ×3 (10:17→21:34)
[2017-12-07] MEDS: Sertraline 50 MG Tab PO SCH ×2 (10:17→10:36)
[2017-12-07] MEDS: glipiZIDE 5 MG Tab PO SCH ×3 (10:18→21:34)
[2017-12-07] MEDS: Furosemide 40 MG Tab PO SCH (10:18)
[2017-12-07] MEDS: Donepezil 10 MG Tab PO SCH ×3 (10:19→21:21)
[2017-12-07] MEDS: Potassium Chloride 20 MEQ Tab.ER PO SCH ×2 (10:19→10:37)
[2017-12-07] MEDS: Latanoprost 0.005% Ophth Soln 2.5 ML Bottle EYERT SCH (10:36)
--- NOTE | 2017-12-07 11:00 | PCM.PN ---
- General Info Date of Service: 12/07/17 Admission Dx/Problem (Free Text): UTI, Pneumonia Subjective Update: In to see [place] today. She is lying in bed sleeping. She responds to her name when asked. Denies any chest pain or shortness of breath. She reports she is hungry. Family states they have ordered a tray for the patient. She has not have a fever since yesterday early afternoon. She is much more responsive today and answers more questions. She denies any chills or feeling hot. She has been been weaned back to her baseline O2 level. Functional Status: Reports: Pain Controlled, Tolerating Diet, Urinating. Denies : New Symptoms - Review of Systems General: Reports: No Symptoms, Weakness (improving ), Fatigue (improving ). Denies: Fever, Chills HEENT: Reports: No Symptoms Pulmonary: Reports: Shortness of Breath, Cough, Wheezing. Denies: Sputum Cardiovascular: Reports: No Symptoms Gastrointestinal: Reports: No Symptoms. Denies: Abdominal Pain, Constipation, Diarrhea, Vomiting Genitourinary: Reports: Incontinence (chronic ) Musculoskeletal: Reports: No Symptoms Skin: Reports: No Symptoms Neurological: Reports: No Symptoms Psychiatric: Reports: No Symptoms - Patient Data Vitals - Most Recent: Last Vital Signs Temp 98.4 F 12/07/17 09:12 Pulse 85 12/07/17 09:12 Resp 17 12/07/17 09:12 BP 139/97 H 12/07/17 10:16 Pulse Ox 93 L 12/07/17 09:12 Weight - Most Recent: 121 lb 9 oz I&O - Last 24 Hours: Intake & Output 12/06/17 12/07/17 12/07/17 22:59 06:59 14:59 Intake Total 1610 340 Balance 1610 340 Lab Results Last 24 Hours: Laboratory Results - last 24 hr 12/06/17 12/06/17 12/06/17 Range/Units 11:07 17:46 20:45 WBC (3.98-10.04) K/mm3 RBC (3.98-5.22) M/mm3 Hgb (11.2-15.7) gm/L Hct (34.1-44.9) % MCV (79.4-94.8) fl MCH (25.6-32.2) pg MCHC (32.2-35.5) g/dl RDW Std Deviation (36.4-46.3) fL Plt Count (182-369) K/mm3 MPV (9.4-12.3) fl Neut % (Auto) (34.0-71.1) % Lymph % (Auto) (19.3-51.7) % Rhea % (Auto) (4.7-12.5) % Eos % (Auto) (0.7-5.8) Baso % (Auto) (0.1-1.2) % Neut # (Auto) (1.56-6.13) K/mm3 Lymph # (Auto) (1.18-3.74) K/mm3 Rhea # (Auto) (0.24-0.36) K/mm3 Eos # (Auto) (0.04-0.36) K/mm3 Baso # (Auto) (0.01-0.08) K/mm3 Manual Slide Review Sodium (136-145) mEq/L Potassium (3.5-5.1) mEq/L Chloride (98-107) mEq/L Carbon Dioxide (21-32) mEq/L Anion Gap (5-15) BUN (7-18) mg/dL Creatinine (0.55-1.02) mg/dL Est Cr Clr Drug Dosing mL/min Estimated GFR (MDRD) (>60) mL/min BUN/Creatinine Ratio (14-18) Glucose (83-115) mg/dL POC Glucose 132 H 123 H 124 H (83-110) mg/dL Calcium (8.5-10.1) mg/dL Magnesium (1.8-2.4) mg/dl C-Reactive Protein (<1.0) mg/dL 12/07/17 12/07/17 12/07/17 Range/Units 05:53 07:07 07:07 WBC 5.47 (3.98-10.04) K/mm3 RBC 4.08 (3.98-5.22) M/mm3 Hgb 12.4 (11.2-15.7) gm/L Hct 38.9 (34.1-44.9) % MCV 95.3 H (79.4-94.8) fl MCH 30.4 (25.6-32.2) pg MCHC 31.9 L (32.2-35.5) g/dl RDW Std Deviation 47.3 H (36.4-46.3) fL Plt Count 155 L (182-369) K/mm3 MPV 9.6 (9.4-12.3) fl Neut % (Auto) 75.1 H (34.0-71.1) % Lymph % (Auto) 15.2 L (19.3-51.7) % Rhea % (Auto) 8.8 (4.7-12.5) % Eos % (Auto) 0 L (0.7-5.8) Baso % (Auto) 0.4 (0.1-1.2) % Neut # (Auto) 4.11 (1.56-6.13) K/mm3 Lymph # (Auto) 0.83 L (1.18-3.74) K/mm3 Rhea # (Auto) 0.48 H (0.24-0.36) K/mm3 Eos # (Auto) 0.00 L (0.04-0.36) K/mm3 Baso # (Auto) 0.02 (0.01-0.08) K/mm3 Manual Slide Review Normal smear Sodium 149 H (136-145) mEq/L Potassium 3.6 (3.5-5.1) mEq/L Chloride 114 H (98-107) mEq/L Carbon Dioxide 24 (21-32) mEq/L Anion Gap 14.6 (5-15) BUN 18 (7-18) mg/dL Creatinine 0.8 (0.55-1.02) mg/dL Est Cr Clr Drug Dosing 42.14 mL/min Estimated GFR (MDRD) > 60 (>60) mL/min BUN/Creatinine Ratio 22.5 H (14-18) Glucose 120 H (83-115) mg/dL POC Glucose 115 H (83-110) mg/dL Calcium 9.9 (8.5-10.1) mg/dL Magnesium 1.9 (1.8-2.4) mg/dl C-Reactive Protein 13.8 H* (<1.0) mg/dL Med Orders - Current: Current Medications Acetaminophen (Tylenol) 650 mg PO Q4H PRN PRN Reason: pain (mild 1-3) Last Admin: 12/06/17 14:31 Dose: 650 mg Acetaminophen (Tylenol) 650 mg RECTAL Q4H PRN PRN Reason: Fever Last Admin: 12/06/17 15:34 Dose: 650 mg Albuterol/Ipratropium (Duoneb 3.0-0.5 Mg/3 Ml) 3 ml NEB Q6HRRT [facility] Last Admin: 12/07/17 08:51 Dose: 3 ml Buspirone HCl (Buspar) 10 mg PO TID [facility] Last Admin: 12/07/17 10:38 Dose: 10 mg Dextrose/Water (Dextrose 50% In Water) 50 ml IVPUSH ASDIRECTED PRN PRN Reason: Hypoglycemia Donepezil HCl (Aricept) 10 mg PO BID [facility] Last Admin: 12/07/17 10:38 Dose: 10 mg Famotidine (Pepcid) 20 mg PO DAILY [facility] Last Admin: 12/07/17 10:37 Dose: Not Given Furosemide (Lasix) 40 mg PO DAILY [facility] Last Admin: 12/07/17 10:18 Dose: 40 mg Glipizide (Glucotrol) 5 mg PO BID [facility] Last Admin: 12/07/17 10:37 Dose: 5 mg Hydralazine HCl (Apresoline) 10 mg IVPUSH Q6H PRN PRN Reason: Hypertension Metronidazole 500 mg/ Premix 100 mls @ 100 mls/hr IV Q8H [facility] Last Admin: 12/07/17 10:12 Dose: 100 mls/hr Ceftriaxone Sodium 1 gm/ (Sodium Chloride) 100 mls @ 200 mls/hr IV Q24H [facility] Last Admin: 12/06/17 17:14 Dose: 200 mls/hr Insulin Aspart (Novolog) 0 unit SUBCUT QIDACANDBED [facility] PRN Reason: Protocol Last Admin: 12/07/17 06:36 Dose: Not Given Latanoprost (Xalatan 0.005% Oph Soln) 0 ml EYERT DAILY [facility] Last Admin: 12/07/17 10:36 Dose: Not Given Losartan Potassium (Cozaar) 50 mg PO DAILY [facility] Last Admin: 12/07/17 10:16 Dose: 50 mg Magnesium Sulfate (Pharmacy To Dose - Magnesium Replacement) 1 dose .XX ASDIRECTED [facility] Metformin HCl (Glucophage) 125 mg PO BID [facility] Last Admin: 12/07/17 10:38 Dose: 125 mg Metoprolol Tartrate (Lopressor) 5 mg IVPUSH Q4H PRN PRN Reason: Tachycardia Last Admin: 12/06/17 15:36 Dose: 5 mg Ondansetron HCl (Zofran) 4 mg IV Q6H PRN PRN Reason: Nausea/Vomiting Potassium Chloride (Pharmacy To Dose - Potassium Replacement) 1 dose .XX ASDIRECTED [facility] Potassium Chloride (Klor-Con M20) 20 meq PO DAILY [facility] Last Admin: 12/07/17 10:37 Dose: Not Given Risperidone (Risperidal) 2 mg PO DAILY [facility] Last Admin: 12/07/17 10:16 Dose: 2 mg Risperidone (Risperidal) 3 mg PO BEDTIME [facility] Last Admin: 12/06/17 21:33 Dose: 3 mg Senna/Docusate Sodium (Senna Plus) 1 tab PO DAILY [facility] Last Admin: 12/07/17 10:37 Dose: Not Given Sertraline HCl (Zoloft) 200 mg PO DAILY [facility] Last Admin: 12/07/17 10:36 Dose: Not Given Sodium Chloride (Saline Flush) 10 ml FLUSH ASDIRECTED PRN PRN Reason: Keep Vein Open Last Admin: 12/04/17 15:00 Dose: 10 ml Discontinued Medications Acetaminophen (Tylenol) 650 mg RECTAL NOW ONE Stop: 12/04/17 16:01 Last Admin: 12/04/17 17:01 Dose: 650 mg Acetaminophen (Tylenol) 650 mg RECTAL Q4H PRN PRN Reason: Pain (mild 1-3) Furosemide (Lasix) 20 mg IVPUSH DAILY [facility] Last Admin: 12/05/17 09:02 Dose: 20 mg Sodium Chloride (Normal Saline) 500 mls @ 500 mls/hr IV ONETIME ONE Stop: 12/04/17 15:47 Last Admin: 12/04/17 15:22 Dose: 500 mls/hr Ceftriaxone Sodium 1 gm/ (Sodium Chloride) 100 mls @ 200 mls/hr IV ONETIME ONE Stop: 12/04/17 16:18 Last Admin: 12/04/17 16:05 Dose: 200 mls/hr Sodium Chloride (Normal Saline) 1,000 mls @ 100 mls/hr IV ONETIME ONE Stop: 12/05/17 01:54 Last Admin: 12/04/17 18:34 Dose: 100 mls/hr Levofloxacin/Dextrose 750 mg/ (Premix) 150 mls @ 100 mls/hr IV Q24H [facility] Last Admin: 12/04/17 17:15 Dose: 100 mls/hr Sodium Chloride (Normal Saline) 1,000 mls @ 75 mls/hr IV ASDIRECTED [facility] Stop: 12/05/17 11:04 Last Admin: 12/04/17 21:44 Dose: 75 mls/hr Magnesium Sulfate 2 gm/ Premix 50 mls @ 25 mls/hr IV ONETIME ONE Stop: 12/05/17 10:59 Last Admin: 12/05/17 09:03 Dose: 25 mls/hr Levofloxacin/Dextrose 750 mg/ (Premix) 150 mls @ 100 mls/hr IV Q48H [facility] Dextrose/Sodium Chloride (Dextrose 5%-Normal Saline) 1,000 mls @ 75 mls/hr IV ASDIRECTED [facility] Last Admin: 12/06/17 03:46 Dose: 75 mls/hr Piperacillin Sod/Tazobactam (Sod 4.5 gm/ Sodium Chloride) 100 mls @ 25 mls/hr IV Q8H [facility] Piperacillin Sod/Tazobactam (Sod 4.5 gm/ Sodium Chloride) 100 mls @ 200 mls/hr IV ONETIME ONE Stop: 12/06/17 10:44 Last Admin: 12/06/17 11:48 Dose: 200 mls/hr Morphine Sulfate (Morphine) 0.5 mg IVPUSH Q2H PRN PRN Reason: Pain (severe 7-10) Stop: 12/05/17 16:54 Pantoprazole Sodium (Protonix Iv) 40 mg IVPUSH DAILY [facility] Last Admin: 12/06/17 09:17 Dose: 40 mg Potassium Chloride (Klor-Con M20) 40 meq PO Q4H [facility] Stop: 12/06/17 17:01 Last Admin: 12/06/17 17:15 Dose: 40 meq - Exam Quality Assessment: Supplemental Oxygen General: Alert (sleeping but responds to verbal stimuli ), Cooperative, No Acute Distress, Other (sleepy but responds to questions when answered and opens eyes. ) HEENT: Pupils Equal, Pupils Reactive, EOMI, Mucous Membr. Moist/[place] Neck: Supple, Trachea Midline, No JVD Lungs: Normal Respiratory Effort, Decreased Breath Sounds, Rhonchi (very mild bilateral ), Wheezing (mild ) Cardiovascular: Regular Rate, Regular Rhythm GI/Abdominal Exam: Normal Bowel Sounds, Soft, Non-Tender, No Organomegaly, No Distention, No Abnormal Bruit, No Mass, Pelvis Stable (Female) Exam: Deferred Extremities: Normal Inspection, Normal Range of Motion, Non-Tender, No Pedal Edema, Normal Capillary Refill Peripheral Pulses: 3+: Radial (L), Radial (R), Posterior Tibial (L), Posterior Tibial (R), Dorsalis Pedis (L), Dorsalis Pedis (R) Skin: Warm, Dry, Intact Neurological: No New Focal Deficit Psy/Mental Status: Alert - Problem List & Annotations (1) UTI (urinary tract infection) SNOMED Code(s): 57038339 Code(s): N39.0 - URINARY TRACT INFECTION, SITE NOT SPECIFIED Status: Acute Priority: High Current Visit: Yes Qualifiers: Urinary tract infection type: acute cystitis Hematuria presence: with hematuria Qualified Code(s): N30.01 - Acute cystitis with hematuria (2) Pneumonia SNOMED Code(s): 371730291 Code(s): J18.9 - PNEUMONIA, UNSPECIFIED ORGANISM Status: Suspected Priority: High Current Visit: Yes Qualifiers: Pneumonia type: aspiration pneumonia Aspiration pneumonia type: unspecified Laterality: bilateral Lung location: lower lobe of lung Qualified Code(s): J69.0 - Pneumonitis due to inhalation of food and vomit (3) RAFAEL (acute kidney injury) SNOMED Code(s): 05081167 Code(s): N17.9 - ACUTE KIDNEY FAILURE, UNSPECIFIED Status: Resolved Priority: High Current Visit: Yes (4) Alzheimer's disease with late onset SNOMED Code(s): 933514890 Code(s): G30.1 - ALZHEIMER'S DISEASE WITH LATE ONSET; F02.80 - DEMENTIA IN OTH DISEASES CLASSD ELSWHR W/O BEHAVRL DISTURB Status: Chronic Priority: High Current Visit: Yes Qualifiers: Dementia behavioral disturbance: with behavioral disturbance Qualified Code (s): G30.1 - Alzheimer's disease with late onset; F02.81 - Dementia in other diseases classified elsewhere with behavioral disturbance; F02.81 - Dementia in other diseases classified elsewhere with behavioral disturbance; F02.81 - Dementia in other diseases classified elsewhere with behavioral disturbance (5) Dementia in other diseases classified elsewhere with behavioral disturbance SNOMED Code(s): 555009863 Code(s): F02.81 - DEMENTIA IN OTH DISEASES CLASSD ELSWHR W BEHAVIORAL DISTURB Status: Chronic Priority: High Current Visit: Yes (6) Paranoid schizophrenia SNOMED Code(s): 71327438 Code(s): F20.0 - PARANOID SCHIZOPHRENIA Status: Chronic Priority: Medium Current Visit: Yes (7) Generalized anxiety disorder SNOMED Code(s): 82059214 Code(s): F41.1 - GENERALIZED ANXIETY DISORDER Status: Chronic Priority: Medium Current Visit: No (8) Major depressive disorder, recurrent, mild SNOMED Code(s): 413483732 Code(s): F33.0 - MAJOR DEPRESSIVE DISORDER, RECURRENT, MILD Status: Chronic Priority: Low Current Visit: No (9) Dysphagia SNOMED Code(s): 20760527 Code(s): R13.10 - DYSPHAGIA, UNSPECIFIED Status: Chronic Priority: Medium Current Visit: Yes Qualifiers: Dysphagia type: unspecified Qualified Code(s): R13.10 - Dysphagia, unspecified (10) Personal history of nicotine dependence SNOMED Code(s): 78606958 Code(s): Z87.891 - PERSONAL HISTORY OF NICOTINE DEPENDENCE Status: Chronic Priority: Low Current Visit: No (11) Hyperlipidemia SNOMED Code(s): 52606189 Code(s): E78.5 - HYPERLIPIDEMIA, UNSPECIFIED Status: Chronic Priority: Low Current Visit: No Qualifiers: Hyperlipidemia type: pure hypercholesterolemia Qualified Code(s): E78.00 - Pure hypercholesterolemia, unspecified; E78.0 - Pure hypercholesterolemia (12) Primary generalized (osteo)arthritis SNOMED Code(s): 539512554 Code(s): M15.0 - PRIMARY GENERALIZED (OSTEO)ARTHRITIS Status: Chronic Priority: Low Current Visit: No (13) Hypertensive heart disease with heart failure Status: Chronic Priority: Low Current Visit: No (14) Heart failure SNOMED Code(s): 01107380 Code(s): I50.9 - HEART FAILURE, UNSPECIFIED Status: Chronic Priority: Medium Current Visit: Yes Qualifiers: Heart failure type: unspecified Heart failure chronicity: unspecified Qualified Code(s): I50.9 - Heart failure, unspecified (15) Presence of artificial hip joint SNOMED Code(s): 678721629 Code(s): Z96.649 - PRESENCE OF UNSPECIFIED ARTIFICIAL HIP JOINT Status: Chronic Priority: Low Current Visit: No Qualifiers: Laterality: unspecified laterality Qualified Code(s): Z96.649 - Presence of unspecified artificial hip joint (16) Gastro-esophageal reflux disease without esophagitis SNOMED Code(s): 627089594 Code(s): K21.9 - GASTRO-ESOPHAGEAL REFLUX DISEASE WITHOUT ESOPHAGITIS Status: Acute Current Visit: Yes (17) Mixed incontinence SNOMED Code(s): 102723526 Code(s): N39.46 - MIXED INCONTINENCE Status: Chronic Priority: Medium Current Visit: Yes (18) Glaucoma SNOMED Code(s): 39958985 Code(s): H40.9 - UNSPECIFIED GLAUCOMA Status: Chronic Priority: Low Current Visit: No Qualifiers: Glaucoma type: unspecified Laterality: unspecified laterality Qualified Code(s): H40.9 - Unspecified glaucoma (19) Exudative age-related macular degeneration SNOMED Code(s): 005361011 Code(s): H35.3290 - EXUDATIVE AGE-RELATED MCLR DEGN, UNSP, STAGE UNSPECIFIED Status: Chronic Priority: Low Current Visit: No Qualifiers: Exudative macular degeneration stage: unspecified stage Eye laterality: unspecified Qualified Code(s): H35.3290 - Exudative age-related macular degeneration, unspecified eye, stage unspecified (20) Dysthymic disorder SNOMED Code(s): 92866988 Code(s): F34.1 - DYSTHYMIC DISORDER Status: Chronic Priority: Low Current Visit: No (21) Type 2 diabetes mellitus without complications SNOMED Code(s): 053462087 Code(s): E11.9 - TYPE 2 DIABETES MELLITUS WITHOUT COMPLICATIONS Status: Chronic Priority: Medium Current Visit: Yes Qualifiers: Diabetes mellitus correction insulin use: without intermediate card tender use Qualified Code(s): E11.9 - Type 2 diabetes mellitus without complications - Problem List Review Problem List Initiated/Reviewed/Updated: Yes - My Orders Last 24 Hours: My Active Orders 12/06/17 15:25 Acetaminophen [Tylenol] 650 mg RECTAL Q4H PRN 12/06/17 16:00 metroNIDAZOLE/Normal Saline [Flagyl 500 MG in NS 100 ML] 500 mg Premix Bag 1 bag IV Q8H 12/06/17 17:00 cefTRIAXone [Rocephin] 1 gm Sodium Chloride 0.9% [Normal Saline] 100 ml IV Q24H 12/07/17 09:00 Famotidine [Pepcid] 20 mg PO DAILY 12/08/17 08:00 Chest 1V Frontal [CR] Routine - Plan Plan:: I/P: Acute: UTI -UA positive in ED although some contamination noted as well -Urine Cultures pending -> gram neg. rods, gram pos cocci so far -[facility] reports fever treated with tylenol and worsened confusion -Risk factor: incontinence -Fluids as ordered -Rocephin given in ED, will switch to Levaquin 750mg -> resistance to levaquin and zosyn, resume Rocephin -Tylenol for fever Pneumonia -Suspect aspiration pneumonia due to increased confusion, hx/o dysphagia -SNF reports fever of 100.4, Occasional fevers here; none since yesterday early afternoon -Rhonchi and wheezing on physical exam -Mild Leukocytosis - WBC 10.54-->11-->7.7-->5.47 -CRP 4.6-->11.4-->14.4-->13.8 -Lactic acid 1.0 -Duonebs -RT (IS and Acapella if AMS improves) -Fluids as ordered -Levaquin 750mg as above--> Switch to Rocephin and add Metronidazole -CXR shows slight parenchymal density behind heart suspicious for small area of PNA -Repeat CXR shows "changing opacities within both lung bases raising the possibility of aspiration" -Repeat CXR in 48 hrs -Sputum culture if AMS improves and pt. able to provide sample Resolved: AMS -Essentially unresponsive on exam -->improved today, responding to verbal stimuli, follows basic commands -Likely 2/2 above -NPO for now--> nursing swallow eval and CARE ATTENDANT to evaluate --> resume diet based on recommendations -Normally alert but very confused per daughter in-law -Normally NDD1 pureed diet with thin liquids, required feeding assistance -DNR/DNI -Monitor RAFAEL -Likely 2/2 poor oral intake -Prior visit in 05/2017 and prior [place] notes show normal kidney function -BUN 26-->23 -Creatinine 1.2-->1.1 -eGFR 43-->47 -IV fluids as ordered; caution with hx/o CHF -Avoid nephrotoxic drugs Chronic: (NPO so hold most home meds) Late onset Alzheimer's disease Dementia with behavioral disturbance Paranoid schizophrenia Anxiety Major depressive disorder Dysphagia Osteoarthritis HLD HTN - Hydralizine and BB Heart failure Frequent UTIs GERD - PPI Incontinence Glaucoma Macular Degeneration Dysthymic disorder Type II DM - QID AC and Bedtime glucose checks, Sliding scale insulin Chronic constipation Plan: Admit to medical floor on telemetry CM/SW for discharge planning - resident of [facility] PT/OT if AMS improves Routine AM labs Other orders as indicated above Spiritual care consult Home medications DVT prophylaxis: SCDs Code status: DNR/DNI; PCP: Dr. Foster at [facility].
[2017-12-07] MEDS: cefTRIAXone 1 GM in Sodium Chloride 0.9% 100 ML IV SCH (17:22)
[2017-12-08] MEDS: Albuterol/Ipratropium 3.0-0.5 MG/3 ML Neb Soln NEB SCH ×2 (02:40→08:27)
--- NOTE | 2017-12-08 07:40 | PCM.PN ---
- General Info Date of Service: 12/08/17 Admission Dx/Problem (Free Text): UTI, Pneumonia Subjective Update: In to see [place] today. She is lying in bed sleeping. She responds to her name when asked. Denies any chest pain or shortness of breath. She reports she is hungry. Family states they have ordered a tray for the patient. She has not have a fever since yesterday early afternoon. She is much more responsive today and answers more questions. She denies any chills or feeling hot. She has been been weaned back to her baseline O2 level. Functional Status: Reports: Pain Controlled, Tolerating Diet, Ambulating, Urinating - Patient Data Vitals - Most Recent: Last Vital Signs Temp 36.8 C 12/08/17 03:01 Pulse 78 12/08/17 03:01 Resp 14 12/08/17 03:01 BP 111/73 12/08/17 03:01 Pulse Ox 92 L 12/08/17 03:01 Weight - Most Recent: 55.248 kg I&O - Last 24 Hours: Intake & Output 12/07/17 12/08/17 12/08/17 22:59 06:59 14:59 Intake Total 680 220 Balance 680 220 Lab Results Last 24 Hours: Laboratory Results - last 24 hr 12/07/17 12/07/17 12/07/17 Range/Units 07:07 07:07 11:27 WBC (3.98-10.04) K/mm3 RBC (3.98-5.22) M/mm3 Hgb (11.2-15.7) gm/L Hct (34.1-44.9) % MCV (79.4-94.8) fl MCH (25.6-32.2) pg MCHC (32.2-35.5) g/dl RDW Std Deviation (36.4-46.3) fL Plt Count (182-369) K/mm3 MPV (9.4-12.3) fl Neut % (Auto) (34.0-71.1) % Lymph % (Auto) (19.3-51.7) % Mayes % (Auto) (4.7-12.5) % Eos % (Auto) (0.7-5.8) Baso % (Auto) (0.1-1.2) % Neut # (Auto) (1.56-6.13) K/mm3 Lymph # (Auto) (1.18-3.74) K/mm3 Mayes # (Auto) (0.24-0.36) K/mm3 Eos # (Auto) (0.04-0.36) K/mm3 Baso # (Auto) (0.01-0.08) K/mm3 Manual Slide Review Normal smear Sodium 149 H (136-145) mEq/L Potassium 3.6 (3.5-5.1) mEq/L Chloride 114 H (98-107) mEq/L Carbon Dioxide 24 (21-32) mEq/L Anion Gap 14.6 (5-15) BUN 18 (7-18) mg/dL Creatinine 0.8 (0.55-1.02) mg/dL Est Cr Clr Drug Dosing 42.14 mL/min Estimated GFR (MDRD) > 60 (>60) mL/min BUN/Creatinine Ratio 22.5 H (14-18) Glucose 120 H (83-115) mg/dL POC Glucose 108 (83-110) mg/dL Calcium 9.9 (8.5-10.1) mg/dL Magnesium 1.9 (1.8-2.4) mg/dl C-Reactive Protein 13.8 H* (<1.0) mg/dL 12/07/17 12/07/17 12/08/17 Range/Units 18:07 20:21 04:02 WBC (3.98-10.04) K/mm3 RBC (3.98-5.22) M/mm3 Hgb (11.2-15.7) gm/L Hct (34.1-44.9) % MCV (79.4-94.8) fl MCH (25.6-32.2) pg MCHC (32.2-35.5) g/dl RDW Std Deviation (36.4-46.3) fL Plt Count (182-369) K/mm3 MPV (9.4-12.3) fl Neut % (Auto) (34.0-71.1) % Lymph % (Auto) (19.3-51.7) % Mayes % (Auto) (4.7-12.5) % Eos % (Auto) (0.7-5.8) Baso % (Auto) (0.1-1.2) % Neut # (Auto) (1.56-6.13) K/mm3 Lymph # (Auto) (1.18-3.74) K/mm3 Mayes # (Auto) (0.24-0.36) K/mm3 Eos # (Auto) (0.04-0.36) K/mm3 Baso # (Auto) (0.01-0.08) K/mm3 Manual Slide Review Sodium (136-145) mEq/L Potassium (3.5-5.1) mEq/L Chloride (98-107) mEq/L Carbon Dioxide (21-32) mEq/L Anion Gap (5-15) BUN (7-18) mg/dL Creatinine (0.55-1.02) mg/dL Est Cr Clr Drug Dosing mL/min Estimated GFR (MDRD) (>60) mL/min BUN/Creatinine Ratio (14-18) Glucose (83-115) mg/dL POC Glucose 95 81 L 75 L (83-110) mg/dL Calcium (8.5-10.1) mg/dL Magnesium (1.8-2.4) mg/dl C-Reactive Protein (<1.0) mg/dL 12/08/17 12/08/17 12/08/17 Range/Units 05:25 05:29 06:35 WBC 5.63 (3.98-10.04) K/mm3 RBC 4.10 (3.98-5.22) M/mm3 Hgb 12.6 (11.2-15.7) gm/L Hct 38.9 (34.1-44.9) % MCV 94.9 H (79.4-94.8) fl MCH 30.7 (25.6-32.2) pg MCHC 32.4 (32.2-35.5) g/dl RDW Std Deviation 46.5 H (36.4-46.3) fL Plt Count 129 L (182-369) K/mm3 MPV 9.9 (9.4-12.3) fl Neut % (Auto) 69.4 (34.0-71.1) % Lymph % (Auto) 21.0 (19.3-51.7) % Mayes % (Auto) 8.0 (4.7-12.5) % Eos % (Auto) 0.7 (0.7-5.8) Baso % (Auto) 0.5 (0.1-1.2) % Neut # (Auto) 3.91 (1.56-6.13) K/mm3 Lymph # (Auto) 1.18 (1.18-3.74) K/mm3 Mayes # (Auto) 0.45 H (0.24-0.36) K/mm3 Eos # (Auto) 0.04 (0.04-0.36) K/mm3 Baso # (Auto) 0.03 (0.01-0.08) K/mm3 Manual Slide Review Normal smear Sodium 149 H (136-145) mEq/L Potassium 3.2 L (3.5-5.1) mEq/L Chloride 112 H (98-107) mEq/L Carbon Dioxide 24 (21-32) mEq/L Anion Gap 16.2 H (5-15) BUN 23 H (7-18) mg/dL Creatinine 0.9 (0.55-1.02) mg/dL Est Cr Clr Drug Dosing 37.46 mL/min Estimated GFR (MDRD) 60 (>60) mL/min BUN/Creatinine Ratio 25.6 H (14-18) Glucose 185 H (83-115) mg/dL POC Glucose 191 H (83-110) mg/dL Calcium 9.6 (8.5-10.1) mg/dL Magnesium 1.9 (1.8-2.4) mg/dl C-Reactive Protein 8.1 H* (<1.0) mg/dL Med Orders - Current: Current Medications Acetaminophen (Tylenol) 650 mg PO Q4H PRN PRN Reason: pain (mild 1-3) Last Admin: 12/06/17 14:31 Dose: 650 mg Acetaminophen (Tylenol) 650 mg RECTAL Q4H PRN PRN Reason: Fever Last Admin: 12/06/17 15:34 Dose: 650 mg Albuterol/Ipratropium (Duoneb 3.0-0.5 Mg/3 Ml) 3 ml NEB Q6HRRT [facility] Last Admin: 12/08/17 02:40 Dose: 3 ml Buspirone HCl (Buspar) 10 mg PO TID [facility] Last Admin: 12/07/17 21:23 Dose: Not Given Dextrose/Water (Dextrose 50% In Water) 50 ml IVPUSH ASDIRECTED PRN PRN Reason: Hypoglycemia Last Admin: 12/08/17 04:13 Dose: 50 ml Donepezil HCl (Aricept) 10 mg PO BID [facility] Last Admin: 12/07/17 21:21 Dose: Not Given Famotidine (Pepcid) 20 mg PO DAILY [facility] Last Admin: 12/07/17 10:37 Dose: Not Given Furosemide (Lasix) 40 mg PO DAILY [facility] Last Admin: 12/07/17 10:18 Dose: 40 mg Glipizide (Glucotrol) 5 mg PO BID [facility] Last Admin: 12/07/17 21:34 Dose: Not Given Hydralazine HCl (Apresoline) 10 mg IVPUSH Q6H PRN PRN Reason: Hypertension Metronidazole 500 mg/ Premix 100 mls @ 100 mls/hr IV Q8H [facility] Last Admin: 12/07/17 23:10 Dose: 100 mls/hr Ceftriaxone Sodium 1 gm/ (Sodium Chloride) 100 mls @ 200 mls/hr IV Q24H [facility] Last Admin: 12/07/17 17:22 Dose: 200 mls/hr Insulin Aspart (Novolog) 0 unit SUBCUT QIDACANDBED [facility] PRN Reason: Protocol Last Admin: 12/07/17 23:19 Dose: Not Given Latanoprost (Xalatan 0.005% [facility]) 0 ml EYERT DAILY [facility] Last Admin: 12/07/17 10:36 Dose: Not Given Losartan Potassium (Cozaar) 50 mg PO DAILY [facility] Last Admin: 12/07/17 10:16 Dose: 50 mg Magnesium Sulfate (Pharmacy To Dose - Magnesium Replacement) 1 dose .XX ASDIRECTED [facility] Metformin HCl (Glucophage) 125 mg PO BID [facility] Last Admin: 12/07/17 21:34 Dose: Not Given Metoprolol Tartrate (Lopressor) 5 mg IVPUSH Q4H PRN PRN Reason: Tachycardia Last Admin: 12/06/17 15:36 Dose: 5 mg Ondansetron HCl (Zofran) 4 mg IV Q6H PRN PRN Reason: Nausea/Vomiting Potassium Chloride (Pharmacy To Dose - Potassium Replacement) 1 dose .XX ASDIRECTED [facility] Potassium Chloride (Klor-Con M20) 20 meq PO DAILY [facility] Last Admin: 12/07/17 10:37 Dose: Not Given Risperidone (Risperidal) 2 mg PO DAILY [facility] Last Admin: 12/07/17 10:16 Dose: 2 mg Risperidone (Risperidal) 3 mg PO BEDTIME [facility] Last Admin: 12/07/17 21:21 Dose: Not Given Saccharomyces Boulardii (Florastor) 250 mg PO DAILY [facility] Senna/Docusate Sodium (Senna Plus) 1 tab PO DAILY [facility] Last Admin: 12/07/17 10:37 Dose: Not Given Sertraline HCl (Zoloft) 200 mg PO DAILY [facility] Last Admin: 12/07/17 10:36 Dose: Not Given Sodium Chloride (Saline Flush) 10 ml FLUSH ASDIRECTED PRN PRN Reason: Keep Vein Open Last Admin: 12/04/17 15:00 Dose: 10 ml Discontinued Medications Acetaminophen (Tylenol) 650 mg RECTAL NOW ONE Stop: 12/04/17 16:01 Last Admin: 12/04/17 17:01 Dose: 650 mg Acetaminophen (Tylenol) 650 mg RECTAL Q4H PRN PRN Reason: Pain (mild 1-3) Furosemide (Lasix) 20 mg IVPUSH DAILY [facility] Last Admin: 12/05/17 09:02 Dose: 20 mg Sodium Chloride (Normal Saline) 500 mls @ 500 mls/hr IV ONETIME ONE Stop: 12/04/17 15:47 Last Admin: 12/04/17 15:22 Dose: 500 mls/hr Ceftriaxone Sodium 1 gm/ (Sodium Chloride) 100 mls @ 200 mls/hr IV ONETIME ONE Stop: 12/04/17 16:18 Last Admin: 12/04/17 16:05 Dose: 200 mls/hr Sodium Chloride (Normal Saline) 1,000 mls @ 100 mls/hr IV ONETIME ONE Stop: 12/05/17 01:54 Last Admin: 12/04/17 18:34 Dose: 100 mls/hr Levofloxacin/Dextrose 750 mg/ (Premix) 150 mls @ 100 mls/hr IV Q24H [facility] Last Admin: 12/04/17 17:15 Dose: 100 mls/hr Sodium Chloride (Normal Saline) 1,000 mls @ 75 mls/hr IV ASDIRECTED [facility] Stop: 12/05/17 11:04 Last Admin: 12/04/17 21:44 Dose: 75 mls/hr Magnesium Sulfate 2 gm/ Premix 50 mls @ 25 mls/hr IV ONETIME ONE Stop: 12/05/17 10:59 Last Admin: 12/05/17 09:03 Dose: 25 mls/hr Levofloxacin/Dextrose 750 mg/ (Premix) 150 mls @ 100 mls/hr IV Q48H [facility] Dextrose/Sodium Chloride (Dextrose 5%-Normal Saline) 1,000 mls @ 75 mls/hr IV ASDIRECTED [facility] Last Admin: 12/06/17 03:46 Dose: 75 mls/hr Piperacillin Sod/Tazobactam (Sod 4.5 gm/ Sodium Chloride) 100 mls @ 25 mls/hr IV Q8H [facility] Piperacillin Sod/Tazobactam (Sod 4.5 gm/ Sodium Chloride) 100 mls @ 200 mls/hr IV ONETIME ONE Stop: 12/06/17 10:44 Last Admin: 12/06/17 11:48 Dose: 200 mls/hr Morphine Sulfate (Morphine) 0.5 mg IVPUSH Q2H PRN PRN Reason: Pain (severe 7-10) Stop: 12/05/17 16:54 Pantoprazole Sodium (Protonix Iv) 40 mg IVPUSH DAILY [facility] Last Admin: 12/06/17 09:17 Dose: 40 mg Potassium Chloride (Klor-Con M20) 40 meq PO Q4H [facility] Stop: 12/06/17 17:01 Last Admin: 12/06/17 17:15 Dose: 40 meq - My Orders Last 24 Hours: My Active Orders 12/08/17 09:00 Saccharomyces Boulardii [Florastor] 250 mg PO DAILY - Plan Plan:: I/P: Acute: UTI -UA positive in ED although some contamination noted as well -Urine Cultures pending -> gram neg. rods, gram pos cocci so far -[facility] reports fever treated with tylenol and worsened confusion -Risk factor: incontinence -Fluids as ordered -Rocephin given in ED, will switch to Levaquin 750mg -> resistance to levaquin and zosyn, resume Rocephin -Tylenol for fever Pneumonia -Suspect aspiration pneumonia due to increased confusion, hx/o dysphagia -SNF reports fever of 100.4, Occasional fevers here; none since yesterday early afternoon -Rhonchi and wheezing on physical exam -Mild Leukocytosis - WBC 10.54-->11-->7.7-->5.47 -CRP 4.6-->11.4-->14.4-->13.8 -Lactic acid 1.0 -Duonebs -RT (IS and Acapella if AMS improves) -Fluids as ordered -Levaquin 750mg as above--> Switch to Rocephin and add Metronidazole -CXR shows slight parenchymal density behind heart suspicious for small area of PNA -Repeat CXR shows "changing opacities within both lung bases raising the possibility of aspiration" -Repeat CXR in 48 hrs -Sputum culture if AMS improves and pt. able to provide sample Resolved: AMS -Essentially unresponsive on exam -->improved today, responding to verbal stimuli, follows basic commands -Likely 2/2 above -NPO for now--> nursing swallow eval and [facility] to evaluate --> resume diet based on recommendations -Normally alert but very confused per daughter in-law -Normally NDD1 pureed diet with thin liquids, required feeding assistance -DNR/DNI -Monitor RAFAEL -Likely 2/2 poor oral intake -Prior visit in 05/2017 and prior [place] notes show normal kidney function -BUN 26-->23 -Creatinine 1.2-->1.1 -eGFR 43-->47 -IV fluids as ordered; caution with hx/o CHF -Avoid nephrotoxic drugs Chronic: (NPO so hold most home meds) Late onset Alzheimer's disease Dementia with behavioral disturbance Paranoid schizophrenia Anxiety Major depressive disorder Dysphagia Osteoarthritis HLD HTN - Hydralizine and BB Heart failure Frequent UTIs GERD - PPI Incontinence Glaucoma Macular Degeneration Dysthymic disorder Type II DM - QID AC and Bedtime glucose checks, Sliding scale insulin Chronic constipation Plan: Admit to medical floor on telemetry CM/SW for discharge planning - resident of [facility] PT/OT if AMS improves Routine AM labs Other orders as indicated above Spiritual care consult Home medications DVT prophylaxis: SCDs Code status: DNR/DNI; PCP: Dr. Foster at [facility].
--- NOTE | 2017-12-08 08:21 | CR ---
Chest: Portable view of the chest was obtained. Comparison: Prior chest x-ray of 12/06/17. Slight increased density within both lung bases are again noted. Lungs otherwise are clear. Heart size is normal. Tortuous thoracic aorta is seen. Bony structures are osteopenic with mild scoliosis. Impression: 1. Mild increased density within both lung bases which appear fairly stable from previous exam. 2. Other incidental findings. Diagnostic code #3
[2017-12-08 08:36] VITALS: BP 132/72
[2017-12-08] MEDS ORDERED: Saccharomyces Boulardii (Probiotic) 250 MG Cap PO SCH (09:00)
[2017-12-08] MEDS ORDERED: Potassium Chloride 20 MEQ Tab.ER PO ONE (09:30)
[2017-12-08] MEDS: Insulin Aspart 100 Units/ML 3 ML Pen SUBCUT SCH ×2 (10:29→11:09)
[2017-12-08] MEDS: metroNIDAZOLE/Normal Saline 500 MG in Premix Bag 1 BAG IV SCH (10:30)
[2017-12-08] MEDS: Latanoprost 0.005% Ophth Soln 2.5 ML Bottle EYERT SCH (11:01)
[2017-12-08] MEDS: Donepezil 10 MG Tab PO SCH (11:06)
[2017-12-08] MEDS: metFORMIN 500 MG Tab PO SCH (11:06)
[2017-12-08] MEDS: Losartan 25 MG Tab PO SCH (11:06)
[2017-12-08] MEDS: busPIRone 5 MG Tab PO SCH (11:06)
[2017-12-08] MEDS: glipiZIDE 5 MG Tab PO SCH (11:07)
[2017-12-08] MEDS: Famotidine 20 MG Tab PO SCH (11:07)
[2017-12-08] MEDS: risperiDONE 1 MG Tab PO SCH (11:07)
[2017-12-08] MEDS: Potassium Chloride 20 MEQ Tab.ER PO SCH (11:07)
[2017-12-08] MEDS: Furosemide 40 MG Tab PO SCH (11:07)
[2017-12-08] MEDS: Sertraline 50 MG Tab PO SCH (11:08)
--- NOTE | 2017-12-08 12:07 | PCM.SN ---
- Free Text/Narrative Note: Patient seen and examined this morning. We discussed care with family member at bedside and with DPOA via phone. They all decided she made comfortable at this point since there were significant changes on her overall clinical status. Hospice/palliative care was then activated and she will be discharged with supplemental O2 and Comfort measures medications. Dr. Foster, PCP, was called and updated about d/c care plans.
--- NOTE | 2017-12-08 12:08 | PCM.DCSUM1 ---
Discharge Summary - Hospital Course Brief History: India Emerson is a 82 yo female who presented to ED from [facility] via ambulance for eval evaluation of failure to thrive adn was found to have pneumonia and UTI. She was subsequently admitted for medical treatment. - Discharge Data Discharge Date: 12/08/17 Discharge Disposition: DC/Tfer to [facility] Condition: Good - Discharge Diagnosis/Problem(s) (1) Aspiration into lower respiratory tract SNOMED Code(s): 164294396 ICD Code: T17.800A - UNSP FOREIGN BODY IN OTH PRT RESP TRACT CAUSING ASPHYX, INIT Status: Acute Qualifiers: Encounter type: initial encounter Qualified Code(s): T17.800A - Unspecified foreign body in other parts of respiratory tract causing asphyxiation, initial encounter (2) Gastro-esophageal reflux disease without esophagitis SNOMED Code(s): 001930948 ICD Code: K21.9 - GASTRO-ESOPHAGEAL REFLUX DISEASE WITHOUT ESOPHAGITIS Status: Chronic (3) Pneumonia SNOMED Code(s): 500264159 ICD Code: J18.9 - PNEUMONIA, UNSPECIFIED ORGANISM Status: Acute (4) UTI (urinary tract infection) SNOMED Code(s): 51910189 ICD Code: N39.0 - URINARY TRACT INFECTION, SITE NOT SPECIFIED Status: Acute Priority: High Qualifiers: Urinary tract infection type: acute cystitis Hematuria presence: with hematuria Qualified Code(s): N30.01 - Acute cystitis with hematuria (5) Alzheimer's disease with late onset SNOMED Code(s): 422979871 ICD Code: G30.1 - ALZHEIMER'S DISEASE WITH LATE ONSET; F02.80 - DEMENTIA IN OTH DISEASES CLASSD ELSWHR W/O BEHAVRL DISTURB Status: Chronic Priority: High Qualifiers: Dementia behavioral disturbance: with behavioral disturbance Qualified Code (s): G30.1 - Alzheimer's disease with late onset; F02.81 - Dementia in other diseases classified elsewhere with behavioral disturbance; F02.81 - Dementia in other diseases classified elsewhere with behavioral disturbance; F02.81 - Dementia in other diseases classified elsewhere with behavioral disturbance (6) Dysphagia SNOMED Code(s): 54441976 ICD Code: R13.10 - DYSPHAGIA, UNSPECIFIED Status: Chronic Priority: Medium Qualifiers: Dysphagia type: unspecified Qualified Code(s): R13.10 - Dysphagia, unspecified (7) Admission for end of life care SNOMED Code(s): 846567499 ICD Code: Z51.5 - ENCOUNTER FOR PALLIATIVE CARE Status: Acute - Patient Summary/Data Operative Procedure(s) Performed: None Complications: None Consults: Consultations 12/05/17 12:12 [employer] A[employer]LYST Evaluation and Treatment [CONS] Routine 12/06/17 03:07 Consult to Occupational Therapy [OT Evaluation and Treatment] [CONS] Routine PT Evaluation and Treatment [CONS] Routine Labs Pending at D/C: None Recommended Follow-up Testing/Procedures: None Planned Operative Procedure(s) after DC: None Hospital Course: Patient was primarily admitted for failure to drive but was diagnosed with pneumonia and urinary tract infection. She was positive with bibasilar density on chest x-ray and on her urinalysis. She grew Escherichia coli and Aerococcus viridans on her urine culture. However the rest of her infectious workup to include screening for influenza, blood cultures, and streptococcal pneumoniae antigen test were all negative. Patient was provided with adequate supportive care and medical treatment along with appropriate antibiotics to treat her infections. Unfortunately, she was not responding to treatment and no significant changes noted overall on her clinical status. Her family understood the patient has not much quality of life due to her advanced dementia. Today after meeting up with her family (including DPOA), they all decided to place her on comfort measures and agreed [facility]. Therefore end of life care was activated and she was discharged with comfort measures medications. Dr. Foster, PCP, was called and updated today regarding discharge care plan. Patient will be followed by him [facility] for continuation of end of life care services. - Patient Instructions Diet: Usual Diet as Tolerated Activity: Bedrest Driving: Do Not Drive Showering/Bathing: No Tub Bathing/Swimming Notify Provider of: Fever, Increased Pain, Swelling and Redness, Nausea and/or Vomiting Other/Special Instructions: - Admission for End of Life Care. - Dr. Foster will take over care at the facility - Discharge Plan Prescriptions/Med Rec: Haloperidol Lactate [Haldol 2 MG/ML Soln] 0.5 mg PO ASDIRECTED PRN #1 bottle PRN Reason: Other Hyoscyamine Sulfate [Levsin-Sl] 0.125 mg SL Q4H PRN #1 tab.subl PRN Reason: Other LORazepam [Ativan ORAL Concentrate 1MG/0.5 ML U/D] 1 mg PO Q4H PRN #1 cont PRN Reason: Other Morphine [Morphine 20 MG/5 ML] 4 mg PO ASDIRECTED PRN #1 ml PRN Reason: Other Scopolamine [Transderm-Scop] 1.5 mg TD ASDIRECTED PRN #6 patch.td.3 PRN Reason: Other Home Medications: Home Meds Latanoprost [Xalatan 0.005% Ophth Soln] 1 drop OP DAILY 11/15/17 [History] Haloperidol Lactate [Haldol 2 MG/ML Soln] 0.5 mg PO ASDIRECTED PRN #1 bottle [Rx] Hyoscyamine Sulfate [Levsin-Sl] 0.125 mg SL Q4H PRN #1 tab.subl 12/08/17 [Rx] LORazepam [Ativan ORAL Concentrate 1MG/0.5 ML U/D] 1 mg PO Q4H PRN #1 cont 12/08 [Rx] Morphine [Morphine 20 MG/5 ML] 4 mg PO ASDIRECTED PRN #1 ml 12/08/17 [Rx] Scopolamine [Transderm-Scop] 1.5 mg TD ASDIRECTED PRN #6 patch.td.3 12/08/17 [Rx ] Patient Handouts: and Dying, Urinary Tract Infection, Adult, Palliative Care, Hospice, Community-Acquired Pneumonia, Adult, [id number] Referrals: Burke Foster MD [Primary Care Provider] - - Discharge Summary/Plan Comment DC Time >30 min.: Yes (45 mins) Discharge Summary/Plan Comment: Discharge to [place] - General Info Date of Service: 12/08/17 Admission Dx/Problem (Free Text: Pneumonia and UTI Subjective Update: Follow Up Functional Status: Reports: Pain Controlled, Urinating. Denies: New Symptoms - Review of Systems General: Denies: Fever, Weakness, Fatigue, Malaise HEENT: Reports: No Symptoms Cardiovascular: Denies: Palpitations Gastrointestinal: Denies: Abdominal Pain, Nausea, Vomiting Genitourinary: Reports: No Symptoms Musculoskeletal: Reports: No Symptoms Skin: Denies: Cyanosis, Mottled, Pallor, Diaphoresis Neurological: Reports: Confusion (Baseline Dementia) Psychiatric: Denies: Anxiety, Agitation, Hallucinations Systems Review Comment: No significant overnight or acute issues. She is essentially the same. She is barely responsive except for painful stimuli. However she appears comfortable in no acute distress lying in bed. - Patient Data Vitals - Most Recent: Last Vital Signs Temp 36.6 C 12/08/17 08:12 Pulse 73 12/08/17 08:12 Resp 12 12/08/17 08:12 BP 132/72 12/08/17 08:12 Pulse Ox 94 L 12/08/17 08:29 Weight - Most Recent: 55.248 kg I&O - Last 24 hours: Intake & Output 12/07/17 12/08/17 12/08/17 22:59 06:59 14:59 Intake Total 680 220 0 Balance 680 220 0 Lab Results - Last 24 hrs: Laboratory Results - last 24 hr 12/07/17 12/07/17 12/08/17 Range/Units 18:07 20:21 04:02 WBC (3.98-10.04) K/mm3 RBC (3.98-5.22) M/mm3 Hgb (11.2-15.7) gm/L Hct (34.1-44.9) % MCV (79.4-94.8) fl MCH (25.6-32.2) pg MCHC (32.2-35.5) g/dl RDW Std Deviation (36.4-46.3) fL Plt Count (182-369) K/mm3 MPV (9.4-12.3) fl Neut % (Auto) (34.0-71.1) % Lymph % (Auto) (19.3-51.7) % Rush % (Auto) (4.7-12.5) % Eos % (Auto) (0.7-5.8) Baso % (Auto) (0.1-1.2) % Neut # (Auto) (1.56-6.13) K/mm3 Lymph # (Auto) (1.18-3.74) K/mm3 Rush # (Auto) (0.24-0.36) K/mm3 Eos # (Auto) (0.04-0.36) K/mm3 Baso # (Auto) (0.01-0.08) K/mm3 Manual Slide Review Sodium (136-145) mEq/L Potassium (3.5-5.1) mEq/L Chloride (98-107) mEq/L Carbon Dioxide (21-32) mEq/L Anion Gap (5-15) BUN (7-18) mg/dL Creatinine (0.55-1.02) mg/dL Est Cr Clr Drug Dosing mL/min Estimated GFR (MDRD) (>60) mL/min BUN/Creatinine Ratio (14-18) Glucose (83-115) mg/dL POC Glucose 95 81 L 75 L (83-110) mg/dL Calcium (8.5-10.1) mg/dL Magnesium (1.8-2.4) mg/dl C-Reactive Protein (<1.0) mg/dL 12/08/17 12/08/17 12/08/17 Range/Units 05:25 05:29 06:35 WBC 5.63 (3.98-10.04) K/mm3 RBC 4.10 (3.98-5.22) M/mm3 Hgb 12.6 (11.2-15.7) gm/L Hct 38.9 (34.1-44.9) % MCV 94.9 H (79.4-94.8) fl MCH 30.7 (25.6-32.2) pg MCHC 32.4 (32.2-35.5) g/dl RDW Std Deviation 46.5 H (36.4-46.3) fL Plt Count 129 L (182-369) K/mm3 MPV 9.9 (9.4-12.3) fl Neut % (Auto) 69.4 (34.0-71.1) % Lymph % (Auto) 21.0 (19.3-51.7) % Rush % (Auto) 8.0 (4.7-12.5) % Eos % (Auto) 0.7 (0.7-5.8) Baso % (Auto) 0.5 (0.1-1.2) % Neut # (Auto) 3.91 (1.56-6.13) K/mm3 Lymph # (Auto) 1.18 (1.18-3.74) K/mm3 Rush # (Auto) 0.45 H (0.24-0.36) K/mm3 Eos # (Auto) 0.04 (0.04-0.36) K/mm3 Baso # (Auto) 0.03 (0.01-0.08) K/mm3 Manual Slide Review Normal smear Sodium 149 H (136-145) mEq/L Potassium 3.2 L (3.5-5.1) mEq/L Chloride 112 H (98-107) mEq/L Carbon Dioxide 24 (21-32) mEq/L Anion Gap 16.2 H (5-15) BUN 23 H (7-18) mg/dL Creatinine 0.9 (0.55-1.02) mg/dL Est Cr Clr Drug Dosing 37.46 mL/min Estimated GFR (MDRD) 60 (>60) mL/min BUN/Creatinine Ratio 25.6 H (14-18) Glucose 185 H (83-115) mg/dL POC Glucose 191 H (83-110) mg/dL Calcium 9.6 (8.5-10.1) mg/dL Magnesium 1.9 (1.8-2.4) mg/dl C-Reactive Protein 8.1 H* (<1.0) mg/dL 12/08/17 Range/Units 10:18 WBC (3.98-10.04) K/mm3 RBC (3.98-5.22) M/mm3 Hgb (11.2-15.7) gm/L Hct (34.1-44.9) % MCV (79.4-94.8) fl MCH (25.6-32.2) pg MCHC (32.2-35.5) g/dl RDW Std Deviation (36.4-46.3) fL Plt Count (182-369) K/mm3 MPV (9.4-12.3) fl Neut % (Auto) (34.0-71.1) % Lymph % (Auto) (19.3-51.7) % Rush % (Auto) (4.7-12.5) % Eos % (Auto) (0.7-5.8) Baso % (Auto) (0.1-1.2) % Neut # (Auto) (1.56-6.13) K/mm3 Lymph # (Auto) (1.18-3.74) K/mm3 Rush # (Auto) (0.24-0.36) K/mm3 Eos # (Auto) (0.04-0.36) K/mm3 Baso # (Auto) (0.01-0.08) K/mm3 Manual Slide Review Sodium (136-145) mEq/L Potassium (3.5-5.1) mEq/L Chloride (98-107) mEq/L Carbon Dioxide (21-32) mEq/L Anion Gap (5-15) BUN (7-18) mg/dL Creatinine (0.55-1.02) mg/dL Est Cr Clr Drug Dosing mL/min Estimated GFR (MDRD) (>60) mL/min BUN/Creatinine Ratio (14-18) Glucose (83-115) mg/dL POC Glucose 101 (83-110) mg/dL Calcium (8.5-10.1) mg/dL Magnesium (1.8-2.4) mg/dl C-Reactive Protein (<1.0) mg/dL Med Orders - Current: Current Medications Acetaminophen (Tylenol) 650 mg PO Q4H PRN PRN Reason: pain (mild 1-3) Last Admin: 12/06/17 14:31 Dose: 650 mg Acetaminophen (Tylenol) 650 mg RECTAL Q4H PRN PRN Reason: Fever Last Admin: 12/06/17 15:34 Dose: 650 mg Albuterol/Ipratropium (Duoneb 3.0-0.5 Mg/3 Ml) 3 ml NEB Q6HRRT REPLACED BY [facility] Last Admin: 12/08/17 08:27 Dose: 3 ml Buspirone HCl (Buspar) 10 mg PO TID REPLACED BY [facility] Last Admin: 12/08/17 11:06 Dose: Not Given Dextrose/Water (Dextrose 50% In Water) 50 ml IVPUSH ASDIRECTED PRN PRN Reason: Hypoglycemia Last Admin: 12/08/17 04:13 Dose: 50 ml Donepezil HCl (Aricept) 10 mg PO BID REPLACED BY [facility] Last Admin: 12/08/17 11:06 Dose: Not Given Famotidine (Pepcid) 20 mg PO DAILY REPLACED BY [facility] Last Admin: 12/08/17 11:07 Dose: Not Given Furosemide (Lasix) 40 mg PO DAILY REPLACED BY [facility] Last Admin: 12/08/17 11:07 Dose: Not Given Glipizide (Glucotrol) 5 mg PO BID REPLACED BY [facility] Last Admin: 12/08/17 11:07 Dose: Not Given Hydralazine HCl (Apresoline) 10 mg IVPUSH Q6H PRN PRN Reason: Hypertension Metronidazole 500 mg/ Premix 100 mls @ 100 mls/hr IV Q8H REPLACED BY [facility] Last Admin: 12/08/17 10:30 Dose: 100 mls/hr Ceftriaxone Sodium 1 gm/ (Sodium Chloride) 100 mls @ 200 mls/hr IV Q24H REPLACED BY [facility] Last Admin: 12/07/17 17:22 Dose: 200 mls/hr Insulin Aspart (Novolog) 0 unit SUBCUT QIDACANDBED REPLACED BY [facility] PRN Reason: Protocol Last Admin: 12/08/17 11:09 Dose: Not Given Latanoprost (Xalatan 0.005% [facility]) 0 ml EYERT DAILY REPLACED BY [facility] Last Admin: 12/08/17 11:01 Dose: 1 drop Losartan Potassium (Cozaar) 50 mg PO DAILY REPLACED BY [facility] Last Admin: 12/08/17 11:06 Dose: Not Given Magnesium Sulfate (Pharmacy To Dose - Magnesium Replacement) 1 dose .XX ASDIRECTED REPLACED BY [facility] Metformin HCl (Glucophage) 125 mg PO BID REPLACED BY [facility] Last Admin: 12/08/17 11:06 Dose: Not Given Metoprolol Tartrate (Lopressor) 5 mg IVPUSH Q4H PRN PRN Reason: Tachycardia Last Admin: 12/06/17 15:36 Dose: 5 mg Ondansetron HCl (Zofran) 4 mg IV Q6H PRN PRN Reason: Nausea/Vomiting Potassium Chloride (Pharmacy To Dose - Potassium Replacement) 1 dose .XX ASDIRECTED REPLACED BY [facility] Potassium Chloride (Klor-Con M20) 20 meq PO DAILY REPLACED BY [facility] Last Admin: 12/08/17 11:07 Dose: Not Given Risperidone (Risperidal) 2 mg PO DAILY REPLACED BY [facility] Last Admin: 12/08/17 11:07 Dose: Not Given Risperidone (Risperidal) 3 mg PO BEDTIME REPLACED BY [facility] Last Admin: 12/07/17 21:21 Dose: Not Given Saccharomyces Boulardii (Florastor) 250 mg PO DAILY REPLACED BY [facility] Last Admin: 12/08/17 11:06 Dose: Not Given Senna/Docusate Sodium (Senna Plus) 1 tab PO DAILY REPLACED BY [facility] Last Admin: 12/08/17 11:07 Dose: Not Given Sertraline HCl (Zoloft) 200 mg PO DAILY REPLACED BY [facility] Last Admin: 12/08/17 11:08 Dose: Not Given Sodium Chloride (Saline Flush) 10 ml FLUSH ASDIRECTED PRN PRN Reason: Keep Vein Open Last Admin: 12/04/17 15:00 Dose: 10 ml Discontinued Medications Acetaminophen (Tylenol) 650 mg RECTAL NOW ONE Stop: 12/04/17 16:01 Last Admin: 12/04/17 17:01 Dose: 650 mg Acetaminophen (Tylenol) 650 mg RECTAL Q4H PRN PRN Reason: Pain (mild 1-3) Furosemide (Lasix) 20 mg IVPUSH DAILY REPLACED BY [facility] Last Admin: 12/05/17 09:02 Dose: 20 mg Sodium Chloride (Normal Saline) 500 mls @ 500 mls/hr IV ONETIME ONE Stop: 12/04/17 15:47 Last Admin: 12/04/17 15:22 Dose: 500 mls/hr Ceftriaxone Sodium 1 gm/ (Sodium Chloride) 100 mls @ 200 mls/hr IV ONETIME ONE Stop: 12/04/17 16:18 Last Admin: 12/04/17 16:05 Dose: 200 mls/hr Sodium Chloride (Normal Saline) 1,000 mls @ 100 mls/hr IV ONETIME ONE Stop: 12/05/17 01:54 Last Admin: 12/04/17 18:34 Dose: 100 mls/hr Levofloxacin/Dextrose 750 mg/ (Premix) 150 mls @ 100 mls/hr IV Q24H REPLACED BY [facility] Last Admin: 12/04/17 17:15 Dose: 100 mls/hr Sodium Chloride (Normal Saline) 1,000 mls @ 75 mls/hr IV ASDIRECTED REPLACED BY [facility] Stop: 12/05/17 11:04 Last Admin: 12/04/17 21:44 Dose: 75 mls/hr Magnesium Sulfate 2 gm/ Premix 50 mls @ 25 mls/hr IV ONETIME ONE Stop: 12/05/17 10:59 Last Admin: 12/05/17 09:03 Dose: 25 mls/hr Levofloxacin/Dextrose 750 mg/ (Premix) 150 mls @ 100 mls/hr IV Q48H REPLACED BY [facility] Dextrose/Sodium Chloride (Dextrose 5%-Normal Saline) 1,000 mls @ 75 mls/hr IV ASDIRECTED REPLACED BY [facility] Last Admin: 12/06/17 03:46 Dose: 75 mls/hr Piperacillin Sod/Tazobactam (Sod 4.5 gm/ Sodium Chloride) 100 mls @ 25 mls/hr IV Q8H REPLACED BY [facility] Piperacillin Sod/Tazobactam (Sod 4.5 gm/ Sodium Chloride) 100 mls @ 200 mls/hr IV ONETIME ONE Stop: 12/06/17 10:44 Last Admin: 12/06/17 11:48 Dose: 200 mls/hr Morphine Sulfate (Morphine) 0.5 mg IVPUSH Q2H PRN PRN Reason: Pain (severe 7-10) Stop: 12/05/17 16:54 Pantoprazole Sodium (Protonix Iv) 40 mg IVPUSH DAILY REPLACED BY [facility] Last Admin: 12/06/17 09:17 Dose: 40 mg Potassium Chloride (Klor-Con M20) 40 meq PO Q4H REPLACED BY [facility] Stop: 12/06/17 17:01 Last Admin: 12/06/17 17:15 Dose: 40 meq Potassium Chloride (Klor-Con M20) 40 meq PO ONETIME ONE Stop: 12/08/17 09:31 Last Admin: 12/08/17 11:08 Dose: Not Given - Exam Quality Assessment: Reports: Supplemental Oxygen General: Reports: Sedated HEENT: Reports: Pupils Equal, Pupils Reactive Neck: Reports: Supple, Trachea Midline, No JVD Lungs: Reports: Normal Respiratory Effort, Decreased Breath Sounds Cardiovascular: Reports: Regular Rate, Regular Rhythm GI/Abdominal Exam: Normal Bowel Sounds, Soft, Non-Tender, No Organomegaly, No Distention, No Abnormal Bruit (Female) Exam: Deferred Rectal (Female) Exam: Deferred Back Exam: Reports: Normal Inspection, Decreased Range of Motion Extremities: Normal Inspection, Non-Tender, No Pedal Edema, Normal Capillary Refill Skin: Reports: Warm, Dry, Intact Neurological: Denies: Normal Gait Psy/Mental Status: Reports: Other (Sedated/Lethargic) *Q Meaningful Use (DIS) - VTE *Q VTE Criteria *Q: - Stroke *Q Stroke Criteria *Q: - AMI *Q AMI Criteria *Q:
== END 2017-12-08 12:30 | DRG 205 ==
LOC: JD.ED 14:26 → JD.MS 17:43
PROVIDERS: ADMIT Internal Medicine; ATTEND Internal Medicine
DX: J18.9 Pneumonia, unspecified organism (principal); T17.800A Unspecified foreign body in other parts of respiratory tract causing asphyxiation, initial encounter; J69.0 Pneumonitis due to inhalation of food and vomit; N30.01 Acute cystitis with hematuria; E78.00 Pure hypercholesterolemia, unspecified; R09.02 Hypoxemia; N17.9 Acute kidney failure, unspecified; R32 Unspecified urinary incontinence; M19.90 Unspecified osteoarthritis, unspecified site; G30.9 Alzheimer's disease, unspecified; F20.0 Paranoid schizophrenia; F32.9 Major depressive disorder, single episode, unspecified; F41.9 Anxiety disorder, unspecified; F33.0 Major depressive disorder, recurrent, mild; R62.7 Adult failure to thrive; G30.1 Alzheimer's disease with late onset; F02.80 Dementia in other diseases classified elsewhere, unspecified severity, without behavioral disturbance, psychotic disturbance, mood disturbance, and anxiety; F41.1 Generalized anxiety disorder; R13.10 Dysphagia, unspecified; Z87.891 Personal history of nicotine dependence; E78.5 Hyperlipidemia, unspecified; M15.0 Primary generalized (osteo)arthritis; I11.0 Hypertensive heart disease with heart failure; I50.9 Heart failure, unspecified; K21.9 Gastro-esophageal reflux disease without esophagitis; N39.46 Mixed incontinence; H40.9 Unspecified glaucoma; H35.3290 Exudative age-related macular degeneration, unspecified eye, stage unspecified; F34.1 Dysthymic disorder; E11.9 Type 2 diabetes mellitus without complications; R41.82 Altered mental status, unspecified; Z66 Do not resuscitate; Z96.649 Presence of unspecified artificial hip joint; Z51.5 Encounter for palliative care; B96.20 Unspecified Escherichia coli [E. coli] as the cause of diseases classified elsewhere; B96.89 Other specified bacterial agents as the cause of diseases classified elsewhere; Z79.84 Long term (current) use of oral hypoglycemic drugs; Z79.82 Long term (current) use of aspirin; Z79.899 Other long term (current) drug therapy
CPT/HCPCS: 36415; 71045; 80053; 81001; 83605; 85025; 86140; 86738; 87040 ×2; 87086; 87088 ×2; 87184; 87186; 87804 ×2; 87899; 96361; 96365; 99285; A9270; J0696; J1956; J7030; J7040; J7050; P9612; 71046; 71046-26; 80048; 82962; 83735; 83880; 87641; 92610-GN; 94640; 94761; 97110-GP; 97162-GP; 97167-GO; 97530-GO; 97530-GP; C9113; J1815-GY; J2543; J3475; J3490; J7042; J7060